=== PATIENT | male | born 1975 | race American Indian/Alaskan Native ===

== ENCOUNTER 2017-02-16 10:10 | Inpatient (IN) | payer MEDICARE, OTHER ==
[2017-02-16 10:54] VITALS: BMI 41.3
[2017-02-16 11:28] LABS: BASO % 0.4 % (0.0-2.0); EOS # 0.1 K/uL (0.0-0.7); EOS % 1.4 % (0.0-4.0); HEMATOCRIT 35.4 % (35.0-51.0); LYMPH # 1.3 K/uL (1.0-4.3); LYMPH % 20.3 % (20.0-40.0); MEAN CELL VOLUME 79.9 fL (80.0-94.0); MEAN CORPUSCULAR HEMOGLOBIN 26.7 pg (27.0-31.0); MEAN CORPUSCULAR HGB CONC 33.3 g/dL (33.0-37.0); MEAN PLATELET VOLUME 8.5 fL (7.2-11.7); MONO # 0.6 K/uL (0.0-0.8); MONO % 8.9 % (0.0-10.0); RED CELL DISTRIBUTION WIDTH 16.1 % (11.5-14.5); WHITE BLOOD COUNT 6.2 K/uL (4.8-10.8)
[2017-02-16 11:31] LABS: RBC URINE < 1 /hpf (0-3); URINE BACTERIA RARE (<OCC); URINE BILIRUBIN NEGATIVE (NEGATIVE); URINE BLOOD NEGATIVE (NEGATIVE); URINE COLOR Yellow (YELLOW); URINE GLUCOSE (UA) NORMAL (Normal); URINE KETONE TRACE mg/dL (NEGATIVE); URINE LEUKOCYTE ESTERASE NEG Leu/uL (Negative); URINE PROTEIN NEGATIVE (NEGATIVE); WBC URINE 1 /hpf (0-5)
[2017-02-16 11:40] LABS: CHLORIDE 102 mmol/L (98-107); POTASSIUM 3.6 mmol/L (3.6-5.2); SODIUM 138 mmol/L (132-148)
[2017-02-16 11:42] LABS: BILIRUBIN,TOTAL 0.3 mg/dL (0.2-1.3); CARBON DIOXIDE 27 mmol/L (22-30); GFR AFRICAN-AMERICAN > 60
[2017-02-16 11:43] LABS: ALB/GLOB RATIO 1.1 (1.0-2.1); ALKALINE PHOSPHATASE 88 U/L (38-126); ALT/SGPT 28 U/L (21-72); AST/SGOT 23 U/L (17-59); BLOOD UREA NITROGEN 13 mg/dL (9-20); CALCIUM 8.2 mg/dl (8.6-10.4); GLUCOSE,RANDOM 118 mg/dL (75-110); TOTAL PROTEIN 6.4 g/dL (6.3-8.3)
[2017-02-16 11:44] LABS: ALCOHOL SERUM < 10 mg/dl (0-10)
--- NOTE | 2017-02-16 12:01 | C.PDOC ---
History Of Present Illness 41 year old patient, with a past medical history of schizophrenia, depression, anxiety, and paranoia, presents to the ED complaining of hearing voices "for a while." Patient states the voices are telling him to kill himself. Patient states he ran out of his medications about a month ago. Patient reports he has been unable to get his medications due to health insurance issues. He was also discharged from [facility] a month ago. Patient denies fever, chills , nausea, vomiting, shortness of breath or homicidal ideation. Time Seen by Provider: 02/16/17 10:35 Chief Complaint (Nursing): Psychiatric Evaluation History Per: Patient History/Exam Limitations: no limitations Onset/Duration Of Symptoms: Other Current Symptoms Are (Timing): Still Present Suicide/Self Injury Attempted (Context): None Modifying Factor(s): None Associated Symptoms: Paranoia, Suicidal Thoughts Recent travel outside of the [place]: No Past Medical History Reviewed: Historical Data, Nursing Documentation, Vital Signs Vital Signs: Last Vital Signs Temp 98.3 F 02/16/17 15:46 Pulse 103 H 02/16/17 15:46 Resp 19 02/16/17 15:46 BP 129/87 02/16/17 15:46 Pulse Ox 98 02/16/17 13:56 - Medical History PMH: Anxiety, Depression, Paranoia, Schizophrenia (With previous suicide attempt 20 years ago), Sleep Apnea - [facility] Procedures DPT ADMINISTRATION (03/28/15) GROUP PSYCHOTHERAPY (03/01/16) INDIVID PSYCHOTHERAP NEC (07/27/14) INDIVIDUAL PSYCHOTHERAPY, SUPPORTIVE (03/01/16) MEDICATION MANAGEMENT (03/01/16) NON-INVASIVE MECHANICAL VENTILATION (11/26/14) OTHER GROUP THERAPY (07/27/14) PSYCHIA INTERV/EVAL NEC (08/19/14) PSYCHIAT DRUG THERAP NEC (03/28/15) Family History: States: Unknown Family Hx - Social History Hx Tobacco Use: Yes Hx Alcohol Use: No Hx Substance Use: No - Immunization History Hx Tetanus Toxoid Vaccination: Yes Hx Influenza Vaccination: Yes Hx Pneumococcal Vaccination: Yes Review Of Systems Except As Marked, All Systems Reviewed And Found Negative. Constitutional: Negative for: Fever, Chills Respiratory: Negative for: Shortness of Breath Gastrointestinal: Negative for: Nausea, Vomiting Psych: Positive for: Suicidal ideation, Other (paranoid) Physical Exam - Physical Exam Appears: Non-toxic, Other (tremulous) Skin: Warm, Dry Head: Atraumatic, Normacephalic Eye(s): bilateral: Normal Inspection Oral Mucosa: Moist Neck: Normal ROM, Supple Chest: Symmetrical Cardiovascular: Rhythm Regular, No Friction Rub, No Murmur Respiratory: Normal Breath Sounds, No Rales, No Rhonchi, No Wheezing Gastrointestinal/Abdominal: Other (obese) Extremity: Normal ROM, No Swelling Neurological/Psych: Oriented x3, Normal Motor, Normal Sensation Gait: Steady ED Course And Treatment - Laboratory Results Result Diagrams: 02/16/17 11:22 02/16/17 11:22 O2 Sat by Pulse Oximetry: 97 (room air) Pulse Ox Interpretation: Normal Medical Decision Making Medical Decision Making: Plan: * Labs Progress: Crisis evaluated the patient at bedside. The patient had voiced suicidal ideation and is placed 1:1. The case was discussed with the psychiatrist who agrees to admit the patient to his service. Disposition - Disposition Disposition: HOSPITALIZED Disposition Time: 11:30 Condition: FAIR - Clinical Impression Clinical Impression: Schizophrenia - PA / ORAL AND MAXILLOFACIAL SURGERY RESIDENT / Resident Statement MD/DO has reviewed & agrees with the documentation as recorded. - Scribe Statement The provider has reviewed the documentation as recorded by the Scribe Shelia Jackson All medical record entries made by the Scribe were at my direction and personally dictated by me. I have reviewed the chart and agree that the record accurately reflects my personal performance of the history, physical exam, medical decision making, and the department course for this patient. I have also personally directed, reviewed, and agree with the discharge instructions and disposition.
[2017-02-16 18:00] VITALS: O2SAT 97
--- NOTE | 2017-02-17 11:32 | PCM.PSYCH ---
Initial Psychiatric Evaluation - Initial Psychiatric Evaluation Type of Admission: Voluntary Legal Status: Capacity Chief Complaint (in patient's own words): 'i started hearing voices' History of Present Illness and Precipitating Events: Patient is a 41 years old -Swazi male, who currently lives with his niece with a long history of schizophrenia paranoid type continuous came to the hospital because of noncompliance of medications and auditory hallucinations noncommand type. Patient remained disorganized and internally preoccupied throughout the evaluation. Patient was superficially cooperative and remained guarded about the details. As per the patient he was just discharged from [facility] last month. Soon after discharge he stopped taking medications, as a result he started hearing voices, to kill him he got scared and came to the hospital to get help. Patient appeared disheveled, and unkempt. He remained depressed, isolated and withdrawn. He reports auditory hallucinations noncommand type, and persecutory delusions that people are following him. Patient reports depressed mood, at times feelings of hopelessness and helplessness. He reports poor sleep but denies any suicidal ideation or any homicidal ideation. He denies any drinking or any substance abuse. past medical history None reported Current Medications: Active Medications Generic Name Dose Route Start Last Admin Trade Name Freq PRN Reason Stop Dose Admin Benztropine Mesylate 2 mg 02/16/17 15:03 Cogentin PO Q6 PRN Extra Pyramidal Symptoms Diphenhydramine HCl 50 mg 02/16/17 15:03 Benadryl PO Q6 PRN Extra Pyramidal Symptoms Haloperidol 5 mg 02/16/17 15:03 Haldol PO Q8 PRN Moderate Agitation Haloperidol Lactate 5 mg 02/16/17 15:03 Haldol IM Q8 PRN Moderate Agitation Risperidone 1 mg 02/16/17 18:00 02/17/17 10:36 Risperdal Tab PO 1 mg BID JOHNY Administration Trazodone HCl 100 mg 02/16/17 22:00 02/16/17 21:43 Desyrel PO 100 mg HS JOHNY Administration Past Psychiatric History - Past Psychiatric History Previous Treatment History: Inpatient Pertinent Medical Hx (Current Medical&Sleep Prob, Allergies): Allergies Allergy/AdvReac Type Severity Reaction Status Date / Time No Known Allergies Allergy Verified 12/20/16 21:26 Benztropine [Cogentin] 1 mg PO BID #60 tab 03/26/16 Sertraline [Zoloft] 200 mg PO DAILY #60 tab 03/26/16 risperiDONE [RisperDAL Tab] 3 mg PO BID #60 tab 03/26/16 Amantadine [Amantadine 100 mg Cap] 100 mg PO TID #0 cap 01/07/17 FLUoxetine [Prozac] 30 mg PO DAILY #0 cap 01/07/17 Lorazepam [Ativan] 0.5 mg PO HS #0 tab 01/07/17 Zaleplon [Sonata] 10 mg PO HS #0 cap 01/07/17 fluPHENAZine [Prolixin] 20 mg PO AMHS #0 tab 01/07/17 Review of Systems - Review of Systems All systems: reviewed and no additional remarkable complaints except - Psychiatric Psychiatric: Anxiety, Auditory Hallucinations, Irritability, Paranoia Mental Status Examination - Personal Presentation Personal Presentation: Looks older than stated age - Affect Affect: Constricted, Depressed - Motor Activity Motor Activity: Psychomotor Retardation - Reliability in Providing Information Reliability in Providing Information: Poor, due to alteration in thoughts, Poor , due to altered mood - Speech Speech: Disorganized, Irrelevant - Mood Mood: Anxious - Formal Thought Process Formal Thought Process: Hallucinations, Delusions, Paranoia, Loosening of associations - Hallucinations/Delusions Hallucinations: Auditory Delusions: Persecution - Obsessions/Compulsions Obsessions: No Compulsions: No - Cognitive Functions Orientation: Person, Place, Situation, Time Sensorium: Alert Attention/Concentration: Attentive Abstract Thinking: [place] Estimate of Intelligence: Below average Judgement: Imparied, as evidence by: Poor judgement, Imparied, as evidence by: Lack of insight into illness - Risk Risk: Suicidal, Diminished functioning - Strength & Assets Inventory Strength & Assets Inventory: Family support, Cooperative DSM 5 DX - DSM 5 DSM 5 Diagnosis: Schizoaffective disorder depressed type - Recommended/Plan of Treatment Treatment Recommendations and Plan of Treatment: Schizoaffective disorder depressed type CBT Psychoeducation Supportive therapy, individual therapy, milieu therapy and group therapy Zoloft 50 mg PO daily Trazodone 50 mg PO Q HS Prolixin 5 mg by mouth twice a day Cogentin 1 mg by mouth twice a day - Smoking Cessation Smoking Cessation Initiated: No
--- NOTE | 2017-02-18 14:12 | PCM.PYCHPN ---
Psychiatric Progress Note - Psychiatric Progress Note Patient seen today, length of contact: 15 min Patient Chief Complaint: 'i am still hearing voices' Problems Identified/Issues Discussed: Patient seen and evaluated, chart reviewed and discussed with the nurse. Patient remained disorganized and internally preoccupied. Patient remained isolated, confined and withdrawn. He still reports of hearing voices. Patient still appears paranoid and delusional. He reports depressed mood and feelings of hopelessness and helplessness. He is taking medications and denies any side effects. Supportive therapy and psychoeducation were given. Medication Change: Yes (increase Zoloft) Medical Record Reviewed: Yes Mental Status Examination - Cognitive Function Orientation: Person, Place, Situation, Time Memory: Intact Attention: Poor Concentration: Poor Association: Loose Fund of Knowledge: Poor - Mood Mood: Anxious - Affect Affect: Constricted, Depressed - Speech Speech: Soft - Formal Thought Process Formal Thought Process: Hallucinations, Delusions, Paranoia, Loosening of associations - Suicidal Ideation Suicidal Ideation: No - Homicidal Ideation Homicidal Ideation: No Goal/Treatment Plan - Goal/Treatment Plan Need for Continued Stay: Discharge may exacerbated symptoms, Severe functional impairment Progress Toward Problem(s) and Goals/Treatment Plan: Schizoaffective disorder depressed type CBT Psychoeducation Supportive therapy, individual therapy, milieu therapy and group therapy Zoloft 100 mg PO daily Trazodone 50 mg PO Q HS Prolixin 5 mg by mouth twice a day Cogentin 1 mg by mouth twice a day - Smoking Cessation Smoking Cessation Initiated: No
--- NOTE | 2017-02-19 12:33 | PCM.PYCHPN ---
Psychiatric Progress Note - Psychiatric Progress Note Patient seen today, length of contact: 15 min Patient Chief Complaint: 'I am feeling depressed.' Problems Identified/Issues Discussed: Patient seen and evaluated, chart reviewed and discussed with the nurse. As per the staff, pt remained isolated, and withdrawn. He remained confined to his room and appeared paranoid and delusional. He appeared unkempt and disheveled. He still reports of hearing voices. He reports depressed mood and anxiety. He is taking medications and denies any aide effects. Supportive therapy and psychoeducation were given. Medication Change: Yes (increase prolixin, increase zoloft) Medical Record Reviewed: Yes Mental Status Examination - Cognitive Function Orientation: Person, Place, Situation, Time Memory: Intact Attention: Poor Concentration: Poor Association: Loose Fund of Knowledge: Poor - Mood Mood: Anxious - Affect Affect: Constricted, Depressed - Speech Speech: Soft - Formal Thought Process Formal Thought Process: Hallucinations, Delusions, Paranoia, Loosening of associations - Suicidal Ideation Suicidal Ideation: No - Homicidal Ideation Homicidal Ideation: No Goal/Treatment Plan - Goal/Treatment Plan Need for Continued Stay: Discharge may exacerbated symptoms, Severe functional impairment Progress Toward Problem(s) and Goals/Treatment Plan: Schizoaffective disorder depressed type CBT Psychoeducation Supportive therapy, individual therapy, milieu therapy and group therapy Zoloft 100 mg PO daily Trazodone 50 mg PO Q HS Prolixin 5 mg by mouth daily Prolixin 10 mg PO QHS Cogentin 1 mg by mouth twice a day - Smoking Cessation Smoking Cessation Initiated: No
--- NOTE | 2017-02-20 17:47 | PCM.PYCHPN ---
Psychiatric Progress Note - Psychiatric Progress Note Patient seen today, length of contact: 15 min Patient Chief Complaint: I still hear voices but I feel safe in the hospital Problems Identified/Issues Discussed: Patient seen. Chart reviewed. Case discussed with the staff. Issues related to illness and treatment were discussed with the patient. Reported compliant with treatment with no adverse affects. Tolerating treatment very well. Patient reported still hearing voices telling him to kill himself but he feels safe in the hospital. Staff reported that patient sleeps all day in his room, is isolative. At the time of evaluation, patient was awake alert oriented 3, had no delusions, no auditory or visual hallucinations, no suicidal ideations or homicidal ideations. Medical Problems: None reported Diagnostic Results: Reviewed DSM 5 Symptoms Update: Improving with treatment Medication Change: No Medical Record Reviewed: Yes Mental Status Examination - Cognitive Function Orientation: Person, Place, Situation, Time Memory: Intact Attention: WNL Concentration: WNL Association: WNL Fund of Knowledge: WNL Decription of patient's judgement and insights: Fair - Mood Mood: Depressed - Affect Affect: Blunted, Depressed - Speech Speech: Appropriate - Formal Thought Process Formal Thought Process: Hallucinations - Suicidal Ideation Suicidal Ideation: No - Homicidal Ideation Homicidal Ideation: No Goal/Treatment Plan - Goal/Treatment Plan Need for Continued Stay: Remain at risks for inpatient hospitalization, Discharge may exacerbated symptoms, Severe functional impairment Progress Toward Problem(s) and Goals/Treatment Plan: Patient education Supportive therapy Continue treatment as before Estimated Date of D/C: 02/22/17 - Smoking Cessation Smoking Cessation Initiated: No
--- NOTE | 2017-02-21 15:48 | PCM.PYCHPN ---
Psychiatric Progress Note - Psychiatric Progress Note Patient seen today, length of contact: 15 min Patient Chief Complaint: Today I am feeling better, not hearing any voices. Problems Identified/Issues Discussed: Patient seen. Chart reviewed. Case discussed with the staff. Issues related to illness and treatment were discussed with the patient. Reported compliant with treatment with no adverse affects. Tolerating treatment very well. Reported feeling better, not hearing voices. Staff reported that patient sleeps all day in his room, is isolative, comes out office room only for food. At the time of evaluation, patient was awake alert oriented 3, had no delusions, no auditory or visual hallucinations, no suicidal ideations or homicidal ideations. Medical Problems: None reported Diagnostic Results: Reviewed DSM 5 Symptoms Update: Some improvement with treatment Medication Change: No Medical Record Reviewed: Yes Mental Status Examination - Cognitive Function Orientation: Person, Place, Situation, Time Memory: Intact Attention: WNL Concentration: WNL Association: [facility] Fund of Knowledge: [facility] Decription of patient's judgement and insights: Fair - Mood Mood: Depressed - Affect Affect: Blunted, Depressed - Speech Speech: Appropriate - Formal Thought Process Formal Thought Process: Other - Suicidal Ideation Suicidal Ideation: No - Homicidal Ideation Homicidal Ideation: No Goal/Treatment Plan - Goal/Treatment Plan Need for Continued Stay: Remain at risks for inpatient hospitalization, Discharge may exacerbated symptoms, Severe functional impairment Progress Toward Problem(s) and Goals/Treatment Plan: Patient education Supportive therapy Continue treatment as before Estimated Date of D/C: 02/22/17 - Smoking Cessation Smoking Cessation Initiated: No
--- NOTE | 2017-02-22 16:49 | PCM.PYCHPN ---
Psychiatric Progress Note - Psychiatric Progress Note Patient seen today, length of contact: 15 min Patient Chief Complaint: 'I am feeling depressed.' Problems Identified/Issues Discussed: Patient seen and evaluated, chart reviewed and discussed with the nurse. The patient appeared depressed, isolated and withdrawn. He still appears suspicious and delusional. He still unkempt and disheveled. As per the staff, pt remained isolated, and withdrawn. However he reports improvement in his voices. He remained confined to his room. He is taking medications and denies any aide effects. Supportive therapy and psychoeducation were given. Medication Change: Yes (Increase Zoloft) Medical Record Reviewed: Yes Mental Status Examination - Cognitive Function Orientation: Person, Place, Situation, Time Memory: Intact Attention: WNL Concentration: Poor Association: Loose Fund of Knowledge: WNL - Mood Mood: Depressed, Anxious - Affect Affect: Blunted, Depressed - Speech Speech: Appropriate - Formal Thought Process Formal Thought Process: Delusions, Paranoia, Loosening of associations, Other - Suicidal Ideation Suicidal Ideation: No - Homicidal Ideation Homicidal Ideation: No Goal/Treatment Plan - Goal/Treatment Plan Need for Continued Stay: Remain at risks for inpatient hospitalization, Discharge may exacerbated symptoms, Severe functional impairment Progress Toward Problem(s) and Goals/Treatment Plan: Schizoaffective disorder depressed type CBT Psychoeducation Supportive therapy, individual therapy, milieu therapy and group therapy Zoloft 200 mg PO daily Trazodone 50 mg PO Q HS Prolixin 5 mg by mouth daily Prolixin 10 mg PO QHS Cogentin 1 mg by mouth twice a day Estimated Date of D/C: 02/22/17 - Smoking Cessation Smoking Cessation Initiated: No
[2017-02-23 07:37] VITALS: RESP 19
--- NOTE | 2017-02-23 15:55 | PCM.PYCHPN ---
Psychiatric Progress Note - Psychiatric Progress Note Patient seen today, length of contact: 15 min Patient Chief Complaint: 'I am feeling much better.' Problems Identified/Issues Discussed: Patient seen and evaluated, chart reviewed and discussed with the nurse. As per the staff, pt is improving and he stepping out of his room. Patient reports improvement in his mood and improvement in his voices. He started taking care of his hygiene. However he appears a bit delusional but he denies any auditory or visual hallucinations and denies any suicidal or homicidal ideation. He is taking medications and denies any side effects. Supportive therapy and psychoeducation were given. Medication Change: Yes (Increase Zoloft, increase prolixin) Medical Record Reviewed: Yes Mental Status Examination - Cognitive Function Orientation: Person, Place, Situation, Time Memory: Intact Attention: WNL Concentration: Poor Association: WNL Fund of Knowledge: Poor - Mood Mood: Depressed, Anxious - Affect Affect: Constricted, Depressed - Speech Speech: Appropriate - Formal Thought Process Formal Thought Process: Delusions, Paranoia, Other - Suicidal Ideation Suicidal Ideation: No - Homicidal Ideation Homicidal Ideation: No Goal/Treatment Plan - Goal/Treatment Plan Need for Continued Stay: Remain at risks for inpatient hospitalization, Discharge may exacerbated symptoms, Severe functional impairment Progress Toward Problem(s) and Goals/Treatment Plan: Schizoaffective disorder depressed type CBT Psychoeducation Supportive therapy, individual therapy, milieu therapy and group therapy Zoloft 200 mg PO daily Trazodone 50 mg PO Q HS Prolixin 10 mg by mouth daily Prolixin 10 mg PO QHS Cogentin 1 mg by mouth twice a day Estimated Date of D/C: 02/22/17
[2017-02-24 08:07] VITALS: BP 104/71; PULSE 76; TEMP 98.1
--- NOTE | 2017-02-24 09:43 | PCM.PYCHDC ---
Mental Status Examination - Mental Status Examination Orientation: Person, Place, Situation, Time Memory: Intact Mood: Neutral Affect: Constricted Speech: Soft Attention: WNL Concentration: WNL Association: WNL Fund of Knowledge: WNL Formal Thought Process: No Impairment Description of patient's judgement and insight: good, fair Psychotic Thoughts and Behaviors: Denies any AVH Suicidal Ideation: No Current Homicidal Ideation?: No Discharge Summary - Discharge Note Reason for Hospitalization: Patient is a 41 years old -Banglades[place] male, who currently lives with his niece with a long history of schizophrenia paranoid type continuous came to the hospital because of noncompliance of medications and auditory hallucinations noncommand type. Patient remained disorganized and internally preoccupied throughout the evaluation. Patient was superficially cooperative and remained guarded about the details. As per the patient he was just discharged from [facility] last month. Soon after discharge he stopped taking medications, as a result he started hearing voices, to kill him he got scared and came to the hospital to get help. Patient appeared disheveled, and unkempt. He remained depressed, isolated and withdrawn. He reports auditory hallucinations noncommand type, and persecutory delusions that people are following him. Patient reports depressed mood, at times feelings of hopelessness and helplessness. He reports poor sleep but denies any suicidal ideation or any homicidal ideation. He denies any drinking or any substance abuse. past medical history None reported Consultations:: List each consultation separately and include: 1. Reason for request. 2. Findings. 3. Follow-up Summary of Hospital Course include:: 1. Description of specific treatment plan utilized for patients during their course of treatmen. 2. Summarize the time- course for resolution of acute symptoms and/or regressed behaviors. 3. Describe issues identified and worked on during hospitalization. 4. Describe medication utilized. 5. Describe medical problems identified and treated. 6. Reassessment of suicide risk Summary of Hospital Course: During the course of his stay, patient (pt) started progressively improving and he no longer remained irritable, depressed, suicidal and paranoid. His mood and paranoia were improved and he started attending groups and meetings and started socializing. He started taking care of his hygiene and ADLs, and he no longer remained disheveled and malodorous. Patient denied any feelings of hopelessness, helplessness, and worthlessness, denied any problem with the sleep or appetite, denied suicidal ideation or homicidal ideation. Pt denied any auditory or visual hallucinations. Some changes were made in his current medications and patient was discharged on following medications. He tolerated these medications very well and denied any side effects. He was discharged to follow up with [facility] IDT program. - Final Diagnosis (DSM 5) Condition upon Discharge: FAIR DSM 5: Schizoaffective disorder depressed type Disposition: HOME/ ROUTINE Follow-up Treatment Plan: Education: Pt was educated and counseled about the risks and benefits of taking and not taking medications. Pt was educated and counseled about the risks of drinking and abusing drugs. Pt was educated and counseled to go to the ER or call 911 if pt develop suicidal ideation or homicidal ideation, worsening of symptoms or severe side effects of the meds. Prescriptions/Medication Reconciliation: Benztropine [Cogentin] 1 mg PO BID #60 tab fluPHENAZine [Prolixin] 10 mg PO BID #60 tab Sertraline [Zoloft] 100 mg PO DAILY #60 tab traZODone [Desyrel] 100 mg PO HS #30 tab - Smoking Cessation Smoking Cessation Medication prescribed: No - Antipsychotic Medications Pt discharged on 2 or more routine antipsychotic medications: No
== END 2017-02-24 10:45 | disposition home or self-care (01) | DRG 885 ==
LOC: C.ER 10:10 → C.5E 13:12
PROVIDERS: ADMIT Psychiatry & Neurology Psychiatry; ATTEND Psychiatry & Neurology Psychiatry
PROC: GZHZZZZ Group Psychotherapy (ICD-10-PCS; principal; 2017-02-16)
PROC: GZ58ZZZ Individual Psychotherapy, Cognitive-Behavioral (ICD-10-PCS; 2017-02-16)
PROC: GZ56ZZZ Individual Psychotherapy, Supportive (ICD-10-PCS; 2017-02-16)
DX: F25.1 Schizoaffective disorder, depressive type (principal); Z91.14 Patient's other noncompliance with medication regimen; G47.30 Sleep apnea, unspecified; Z87.891 Personal history of nicotine dependence; Z91.5 Personal history of self-harm

== ENCOUNTER 2017-03-04 16:09 | Emergency (ER) | payer MEDICARE ==
[2017-03-04 16:09] VITALS: BMI 41.3
[2017-03-04] MEDS ORDERED: Silver Sulfadiazine 1% Cream (20 gm) TOP STA (16:24)
--- NOTE | 2017-03-04 16:27 | C.PDOC ---
History Of Present Illness 41 y/o male presents to ED with c/o sunburn to posterior shoulders, chest, and legs onset 2 days ago. Patient states he has been applying aloe gel to the area w/o relief. Denies any other complaints. Time Seen by Provider: 03/04/17 16:18 Chief Complaint (Nursing): Abnormal Skin Integrity History Per: Patient History/Exam Limitations: no limitations Onset/Duration Of Symptoms: Days Current Symptoms Are (Timing): Still Present Location Of Injury: Right: Leg, Shoulder, Left: Leg, Shoulder, Anterior: Chest, Posterior: Shoulder Quality Of Symptoms: Painful. denies: Draining Recent travel outside of the [place]: No Past Medical History Reviewed: Historical Data, Nursing Documentation, Vital Signs - Medical History PMH: Anxiety, Depression, Paranoia, Schizophrenia (With previous suicide attempt 20 years ago), Sleep Apnea - [facility] Procedures DPT ADMINISTRATION (03/28/15) GROUP PSYCHOTHERAPY (02/16/17) INDIVID PSYCHOTHERAP NEC (07/27/14) INDIVIDUAL PSYCHOTHERAPY, COGNITIVE-BEHAVIORAL (02/16/17) INDIVIDUAL PSYCHOTHERAPY, SUPPORTIVE (02/16/17) MEDICATION MANAGEMENT (03/01/16) NON-INVASIVE MECHANICAL VENTILATION (11/26/14) OTHER GROUP THERAPY (07/27/14) PSYCHIA INTERV/EVAL NEC (08/19/14) PSYCHIAT DRUG THERAP NEC (03/28/15) Family History: States: Unknown Family Hx - Social History Hx Tobacco Use: Yes Hx Alcohol Use: No Hx Substance Use: Yes - Immunization History Hx Tetanus Toxoid Vaccination: Yes Hx Influenza Vaccination: Yes Hx Pneumococcal Vaccination: Yes Review Of Systems Except As Marked, All Systems Reviewed And Found Negative. Constitutional: Negative for: Fever, Chills Cardiovascular: Negative for: Chest Pain Respiratory: Negative for: Cough Gastrointestinal: Negative for: Nausea, Vomiting Skin: Positive for: Other (burn to anterior legs, chest, and posterior shoulders ). Negative for: Rash Neurological: Negative for: Weakness, Numbness, Headache Physical Exam - Physical Exam Appears: Non-toxic, Other (in mild pain) Skin: Warm, Dry, No Rash, Other (Diffuse 1st degree sun burn to anterior legs, chest, and partial thickness burn bilateral posterior shoulders w/ open blisters.) Head: Atraumatic, Normacephalic Chest: Symmetrical Cardiovascular: Rhythm Regular Respiratory: Normal Breath Sounds, No Rales, No Rhonchi, No Wheezing Gastrointestinal/Abdominal: Soft, No Tenderness Back: Normal Inspection Extremity: Normal ROM, Capillary Refill (< 2 sec.) Neurological/Psych: Oriented x3, Normal Speech, Normal Cognition ED Course And Treatment Progress Note: Treated with Motrin and silvadeine. Given prescriptions for same. Advised to apply as directed and f/u with PMD. Disposition Counseled Patient/Family Regarding: Diagnosis, Need For Followup, Rx Given - Disposition Referrals: [facility] [Outside] Disposition: HOME/ ROUTINE Disposition Time: 16:40 Condition: STABLE Prescriptions: Ibuprofen [Motrin Tab] 600 mg PO Q6 PRN #30 tab PRN Reason: fever/pain Lidocaine/Menthol/Aloe Vera [Aloe Vera Pain Relieving Gel] 1 appl TP TID #1 bottle Silver Sulfadiazine 1% [Silver Sulfadiazine] 1 appl TP BID #1 jar Instructions: Sunburn (ED) Print Language: HUNGARIAN - POA Present On Arrival: None - Clinical Impression Clinical Impression: Sunburn - Scribe Statement The provider has reviewed the documentation as recorded by the Didi Reaves Provider Attestation: All medical record entries made by the Didi were at my direction and personally dictated by me. I have reviewed the chart and agree that the record accurately reflects my personal performance of the history, physical exam, medical decision making, and the department course for this patient. I have also personally directed, reviewed, and agree with the discharge instructions and disposition.
[2017-03-04] MEDS ORDERED: Silver Sulfadiazine 1% Cream (20 gm) ONE (16:39)
== END 2017-03-04 16:56 | disposition home or self-care (01) ==
LOC: C.ER 16:09
DX: L55.0 Sunburn of first degree (principal); L55.1 Sunburn of second degree

== ENCOUNTER 2017-03-28 16:56 | Emergency (ER) | payer MEDICARE ==
[2017-03-28 16:57] VITALS: BMI 41.3
--- NOTE | 2017-03-28 17:17 | C.PDOC ---
History Of Present Illness 41 year old male presents to the ED with complaints of hearing voices for two weeks. Patient states the voices are telling himself and he is paranoid but refuses to say what he is paranoid about. He has been contemplating cutting himself and has a history of cutting his wrists. Patient notes diagnosis of schizophrenia but is not taking any medications, has no insurance, and is homeless. He denies any medical problems, substance abuse, or other physical complaints at this time. Time Seen by Provider: 03/28/17 17:05 Chief Complaint (Nursing): Psychiatric Evaluation History Per: Patient History/Exam Limitations: no limitations Onset/Duration Of Symptoms: Persistent (2 weeks ) Suicide/Self Injury Attempted (Context): Other (past history of cutting wrists ) Associated Symptoms: Paranoia, Suicidal Thoughts Involuntary Hold By: None Recent travel outside of the [place]: No Past Medical History Reviewed: Historical Data, Nursing Documentation, Vital Signs Vital Signs: Last Vital Signs Temp 98.4 F 03/28/17 22:28 Pulse 75 03/28/17 22:28 Resp 18 03/28/17 22:28 BP 116/73 03/28/17 22:28 Pulse Ox 95 03/28/17 22:28 - Medical History PMH: Anxiety, Depression, Paranoia, Schizophrenia (With previous suicide attempt 20 years ago), Sleep Apnea - [facility] Procedures DPT ADMINISTRATION (03/28/15) GROUP PSYCHOTHERAPY (02/16/17) INDIVID PSYCHOTHERAP NEC (07/27/14) INDIVIDUAL PSYCHOTHERAPY, COGNITIVE-BEHAVIORAL (02/16/17) INDIVIDUAL PSYCHOTHERAPY, SUPPORTIVE (02/16/17) MEDICATION MANAGEMENT (03/01/16) NON-INVASIVE MECHANICAL VENTILATION (11/26/14) OTHER GROUP THERAPY (07/27/14) PSYCHIA INTERV/EVAL NEC (08/19/14) PSYCHIAT DRUG THERAP NEC (03/28/15) Family History: States: Other Other Family History: non-contributory - Social History Hx Tobacco Use: Yes Hx Alcohol Use: No Hx Substance Use: No - Immunization History Hx Tetanus Toxoid Vaccination: Yes Hx Influenza Vaccination: Yes Hx Pneumococcal Vaccination: Yes Review Of Systems Constitutional: Negative for: Fever, Chills Cardiovascular: Negative for: Chest Pain, Palpitations Respiratory: Negative for: Cough, Shortness of Breath Gastrointestinal: Negative for: Nausea, Vomiting, Abdominal Pain, Diarrhea Psych: Positive for: Suicidal ideation, Other (Paranoia) Physical Exam - Physical Exam Appears: Non-toxic, No Acute Distress Skin: Warm, Dry Head: Atraumatic Eye(s): bilateral: Normal Inspection, PERRL, EOMI Oral Mucosa: Moist Neck: Supple Chest: Symmetrical, No Deformity Cardiovascular: Rhythm Regular Respiratory: Normal Breath Sounds, No Rhonchi, No Wheezing Gastrointestinal/Abdominal: Soft, No Tenderness, No Distention, No Guarding, No Rebound Extremity: Normal ROM, No Tenderness Neurological/Psych: Oriented x3, Normal Speech, Normal Cognition, Normal Cranial Nerves, Normal Motor, Normal Sensation, Normal Reflexes Gait: Steady ED Course And Treatment - Laboratory Results Result Diagrams: 03/28/17 17:45 03/28/17 17:45 O2 Sat by Pulse Oximetry: 98 (room air ) Medical Decision Making Medical Decision Making: the pt is medically clear for psychiatric admission EKG: Ordered, reviewed, and independently interpreted the EKG. Rate: 85 BPM Rhythm: Normal Sinus Rhythm Interpretation: Left axis deviation. no acute ischemia. cxr- nad Disposition - Disposition Disposition: Trans to Other Acute Care Hosp Disposition Time: 22:33 Condition: STABLE - Clinical Impression Clinical Impression: Schizophrenia - Scribe Statement The provider has reviewed the documentation as recorded by the Scribfarhan Blanchard All medical record entries made by the Scribe were at my direction and personally dictated by me. I have reviewed the chart and agree that the record accurately reflects my personal performance of the history, physical exam, medical decision making, and the department course for this patient. I have also personally directed, reviewed, and agree with the discharge instructions and disposition.
[2017-03-28 17:50] LABS: BASO % 0.5 % (0.0-2.0); EOS # 0.1 K/uL (0.0-0.7); EOS % 1.4 % (0.0-4.0); HEMOGLOBIN 13.1 g/dL (12.0-18.0); LYMPH # 1.2 K/uL (1.0-4.3); LYMPH % 24.6 % (20.0-40.0); MEAN CELL VOLUME 79.7 fL (80.0-94.0); MEAN CORPUSCULAR HEMOGLOBIN 26.2 pg (27.0-31.0); MEAN CORPUSCULAR HGB CONC 32.9 g/dL (33.0-37.0); MEAN PLATELET VOLUME 8.2 fL (7.2-11.7); MONO # 0.5 K/uL (0.0-0.8); MONO % 9.5 % (0.0-10.0); RBC 4.99 Mil/uL (4.40-5.90); RED CELL DISTRIBUTION WIDTH 16.1 % (11.5-14.5); WHITE BLOOD COUNT 4.7 K/uL (4.8-10.8)
[2017-03-28 17:57] LABS: SQUAMOUS EPITHIAL < 1 /hpf (0-5); URINE BILIRUBIN NEGATIVE (NEGATIVE); URINE BLOOD NEGATIVE (NEGATIVE); URINE CLARITY Clear (Clear); URINE COLOR Yellow (YELLOW); URINE GLUCOSE (UA) NORMAL (Normal); URINE LEUKOCYTE ESTERASE NEG Leu/uL (Negative); URINE NITRATE NEGATIVE (NEGATIVE); URINE PROTEIN NEGATIVE (NEGATIVE); URINE UROBILINOGEN NORMAL mg/dL (0.2-1.0)
[2017-03-28 18:01] LABS: ALBUMIN 3.8 g/dL (3.5-5.0)
[2017-03-28 18:04] LABS: AST/SGOT 27 U/L (17-59); BARBITURATES, UR NEGATIVE (NEGATIVE); GFR AFRICAN-AMERICAN > 60; GFR NON-AFRICAN AMERICAN > 60
[2017-03-28 18:05] LABS: ALB/GLOB RATIO 1.1 (1.0-2.1); ALT/SGPT 35 U/L (21-72); BENZODIAZEPINES, UR NEGATIVE (NEGATIVE); BLOOD UREA NITROGEN 8 mg/dL (9-20); CALCIUM 9.1 mg/dl (8.6-10.4)
[2017-03-28 18:06] LABS: SALICYLATE < 1.0 mg/dL 1
[2017-03-28 18:08] LABS: ACETAMINOPHEN < 10.0 ug/mL (10.0-30.0)
[2017-03-28 18:09] LABS: OPIATES, UR NEGATIVE (NEGATIVE); PHENCYCLIDINE, UR NEGATIVE (NEGATIVE)
[2017-03-28 21:59] VITALS: RESP 18
[2017-03-28 22:31] VITALS: BP 116/73; PULSE 75; TEMP 98.4
--- NOTE | 2017-03-29 08:45 | RAD ---
HISTORY: Psychiatric evaluation COMPARISON: No prior. FINDINGS: LUNGS: Mild venous congestion. Patchy increased markings at the left lung base. PLEURA: As above. CARDIOVASCULAR: Normal. OSSEOUS STRUCTURES: No significant abnormalities. VISUALIZED UPPER ABDOMEN: Normal. OTHER FINDINGS: None. IMPRESSION: Mild venous congestion. Patchy increased markings at the left lung base.
[2017-03-30 00:29] VITALS: O2SAT 98
--- NOTE | 2017-03-31 11:07 | CARD ---
APPROVED REPORT EKG Measurement Heart [id number] <Conclusion> Normal sinus rhythm Left axis deviation Cannot rule out Anterior infarct, age undetermined Abnormal ECG
== END 2017-03-28 22:34 | disposition short-term general hospital (02) ==
LOC: C.ER 16:56
DX: F20.9 Schizophrenia, unspecified (principal)
CPT/HCPCS: 71010; 80053; 81001; 85025; 99284; G0480

== ENCOUNTER 2017-06-03 11:18 | Inpatient (IN) | payer MEDICARE, MEDICAID ==
[2017-06-03 11:19] VITALS: BMI 44.5
[2017-06-03 12:44] LABS: URINE BILIRUBIN NEGATIVE (NEGATIVE); URINE BLOOD NEGATIVE (NEGATIVE); URINE COLOR Yellow (YELLOW); URINE GLUCOSE (UA) NORMAL (Normal); URINE KETONE NEGATIVE (NEGATIVE); URINE LEUKOCYTE ESTERASE NEG Leu/uL (Negative); URINE PROTEIN NEGATIVE (NEGATIVE); URINE UROBILINOGEN NORMAL mg/dL (0.2-1.0); WBC URINE < 1 /hpf (0-5)
[2017-06-03 12:46] LABS: BASO % 0.7 % (0.0-2.0); EOS # 0.2 K/uL (0.0-0.7); EOS % 2.9 % (0.0-4.0); HEMATOCRIT 44.8 % (35.0-51.0); LYMPH # 1.6 K/uL (1.0-4.3); LYMPH % 24.2 % (20.0-40.0); MEAN CELL VOLUME 79.7 fL (80.0-94.0); MEAN CORPUSCULAR HGB CONC 33.8 g/dL (33.0-37.0); MEAN PLATELET VOLUME 9.5 fL (7.2-11.7); MONO # 0.6 K/uL (0.0-0.8); NRBC % 0.1 % (0.0-2.0); RED CELL DISTRIBUTION WIDTH 16.3 % (11.5-14.5); WHITE BLOOD COUNT 6.4 K/uL (4.8-10.8)
[2017-06-03 12:53] LABS: ALB/GLOB RATIO 1.2 (1.0-2.1); ALCOHOL SERUM < 10 mg/dl (0-10); ALKALINE PHOSPHATASE 88 U/L (38-126); ALT/SGPT 24 U/L (21-72); AST/SGOT 32 U/L (17-59); BILIRUBIN,TOTAL 0.6 mg/dL (0.2-1.3); BLOOD UREA NITROGEN 11 mg/dL (9-20); CALCIUM 9.2 mg/dl (8.6-10.4); CARBON DIOXIDE 20 mmol/L (22-30); CHLORIDE 100 mmol/L (98-107); GFR AFRICAN-AMERICAN > 60; GLUCOSE,RANDOM 102 mg/dL (75-110); POTASSIUM 4.2 mmol/L (3.6-5.2); SODIUM 136 mmol/L (132-148); TOTAL PROTEIN 7.5 g/dL (6.3-8.3)
--- NOTE | 2017-06-03 12:59 | RAD ---
PROCEDURE: CHEST RADIOGRAPH, 1 VIEW HISTORY: Detox/Psy COMPARISON: Comparison made with prior chest radiograph 03/28/2017 FINDINGS: LUNGS: Poor inspiration with low lung volumes, crowded bronchovascular markings and mild bibasilar atelectasis. PLEURA: No pneumothorax or pleural fluid seen. CARDIOVASCULAR: Heart is appears upper limits of normal/borderline enlarged OSSEOUS STRUCTURES: No significant abnormalities. VISUALIZED UPPER ABDOMEN: Normal. OTHER FINDINGS: None. IMPRESSION: Poor inspiration with low lung volumes, crowded bronchovascular markings and mild bibasilar atelectasis.
--- NOTE | 2017-06-03 14:27 | C.PDOC ---
History Of Present Illness 41 y/o male, with PMHx of anxiety, depression, paranoia, schizophrenia, presents to ED for psychiatric evaluation. Pt states he has been hearing voices telling him to hurt himself. Pt states that he had thoughts of hurting himself by cutting his wrists. Of note, pt is not complaint with his psych meds. Pt also complaints of sharp non-radiating left sided chest pain associated with occasional nausea for the last 2 days. Otherwise, denies any palpitations, shortness of breath, abdominal pain, vomiting, fever, or chills. Time Seen by Provider: 06/03/17 12:27 Chief Complaint (Nursing): Psychiatric Evaluation History Per: Patient History/Exam Limitations: no limitations Onset/Duration Of Symptoms: Days (2) Current Symptoms Are (Timing): Still Present Suicide/Self Injury Attempted (Context): None Modifying Factor(s): None Associated Symptoms: Suicidal Thoughts, Suicidal Plan Involuntary Hold By: None Recent travel outside of the [place]: No Additional History Per: Patient Past Medical History Reviewed: Historical Data, Nursing Documentation, Vital Signs Vital Signs: Last Vital Signs Temp 98.5 F 06/03/17 13:58 Pulse 89 06/03/17 13:58 Resp 18 06/03/17 16:33 BP 133/82 06/03/17 13:58 Pulse Ox 95 06/03/17 14:47 - Medical History PMH: Anxiety, Depression, Paranoia, Schizophrenia (With previous suicide attempt 20 years ago), Sleep Apnea - [facility] Procedures DPT ADMINISTRATION (03/28/15) GROUP PSYCHOTHERAPY (02/16/17) INDIVID PSYCHOTHERAP NEC (07/27/14) INDIVIDUAL PSYCHOTHERAPY, COGNITIVE-BEHAVIORAL (02/16/17) INDIVIDUAL PSYCHOTHERAPY, SUPPORTIVE (02/16/17) MEDICATION MANAGEMENT (03/01/16) NON-INVASIVE MECHANICAL VENTILATION (11/26/14) OTHER GROUP THERAPY (07/27/14) PSYCHIA INTERV/EVAL NEC (08/19/14) PSYCHIAT DRUG THERAP NEC (03/28/15) Family History: States: Unknown Family Hx - Social History Hx Tobacco Use: Yes Hx Alcohol Use: No Hx Substance Use: No - Immunization History Hx Tetanus Toxoid Vaccination: Yes Hx Influenza Vaccination: Yes Hx Pneumococcal Vaccination: Yes Review Of Systems Constitutional: Negative for: Fever, Chills Cardiovascular: Positive for: Chest Pain. Negative for: Palpitations, Edema, Light Headedness Respiratory: Negative for: Cough, Shortness of Breath Gastrointestinal: Positive for: Nausea. Negative for: Vomiting, Abdominal Pain , Diarrhea, Constipation Genitourinary: Negative for: Dysuria, Frequency, Hematuria Skin: Negative for: Rash, Bruising Neurological: Negative for: Headache, Dizziness Psych: Positive for: Suicidal ideation Physical Exam - Physical Exam Additional Physical Exam Comments: Constitutional: No acute distress. Morbidly obese. Head: Normocephalic. Atraumatic. Eyes: PERRL. EOMI ENT: Moist mucous membranes. Neck: Supple. Cardiovascular: Regular rate and rhythm. No murmur. Chest: Reproducible tenderness to left sternal border chest wall. Respiratory: Clear to auscultation bilaterally. No wheezing, rhonchi, or rales. GI: Soft. Nontender. Nondistended. Normoactive bowel sounds. Obese abdomen. Back: No CVA tenderness. Musculoskeletal: No swelling of extremities. No calf tenderness. Skin: No rash. Neurologic: Alert, no gross focal deficit. ED Course And Treatment - Laboratory Results Result Diagrams: 06/03/17 12:37 06/03/17 12:37 ECG: Interpreted By Me, Viewed By Me ECG Rhythm: Sinus Rhythm ECG Interpretation: Normal Rate From EC (bpm) O2 Sat by Pulse Oximetry: 95 (on RA) Pulse Ox Interpretation: Normal Medical Decision Making Medical Decision Making: EKG ordered and reviewed. Pt was given Aspirin. ot with persistent left sternal border cp x 2 days, ekg nsr, neg trop, and pain reproducible, unlikely to be cardiac related. pt to be admitted to psych Disposition Discussed With : Michelle Carrillo Doctor Will See Patient In The: Hospital - Disposition Disposition: HOSPITALIZED Disposition Time: 14:46 Condition: STABLE - Clinical Impression Clinical Impression: Schizophrenia, Costochondritis - PA / MARKETING CONTENT MANAGER / Resident Statement MD/DO has reviewed & agrees with the documentation as recorded. - Scribe Statement The provider has reviewed the documentation as recorded by the Nicoleibfarhan Jackson All medical record entries made by the Scribe were at my direction and personally dictated by me. I have reviewed the chart and agree that the record accurately reflects my personal performance of the history, physical exam, medical decision making, and the department course for this patient. I have also personally directed, reviewed, and agree with the discharge instructions and disposition. Decision To Admit - Pt Status Changed To: Hospital Disposition Of: Inpatient - Admit Certification Admit to Inpatient:: After my assessment, the patient will require hospitalization for at least two midnights. This is because of the severity of symptoms shown, intensity of services needed, and/or the medical risk in this patient being treated as an outpatient. - InPatient: Physician Admission Certification: I certify that this patient requires 2 or more midnights of care for the following reason:: for psychiatric stabilization - . Bed Request Type: Psychiatry Admitting Physician: Michelle Carrillo Patient Diagnosis: Schizophrenia, Costochondritis
--- NOTE | 2017-06-03 16:22 | PCM.BM ---
<Juan Maldonado - Last Filed: 06/03/17 16:19> Treatment Plan Problems - Problems identified on initial assessmt Auditory Hallucination Date Initiated: 06/03/17 Time Initiated: 15:50 Assessment reference: NA Status: Active Depression Date Initiated: 06/03/17 Time Initiated: 15:50 Assessment reference: NA Status: Active Treatment assets and liabiliti Patient Assests: cooperative, educated, self-reliant, ADL independent, negotiates basic needs, good past tx response, cognitively intact - Milieu Protocol Maintain good personal hygiene: daily Encourage regular showers, daily Remind patient to perform daily oral care Maintain personal safety: every shift Educate patient to report safety concerns to staff, every shift Monitor environment for contraband/sharps Medication safety: Monitor for expected outcome, potential side effects: every shift, Assess barriers to learning: every shift, Assess readiness for medication education: every shift <Michelle Carrillo - Last Filed: 06/04/17 10:40> - Diagnosis (1) Schizoaffective disorder, bipolar type Status: Acute Interventions: 06/04/17 10:41 * Assess/adjust medications daily and /or as needed * See patient on an individual basis 7x/week to assess status of hallucinations * Discuss risks, benefits, side effects and alternatives of medications * <Erendira Pulido - Last Filed: 06/04/17 10:45> Family Contact Family involvement: Famliy/SO not involved - Goals for Treatment Patient goals for treatment: "I need Medicaid so I can get my meds." Discharge/Continuing Care - Education Needs Education Needs: Patient Medication, Patient Coping Skills, Patient Community resources - Discharge Discharge Criteria: Tolerates medication w/o severe side effects, Reduction of target symptoms Discharge to:: Halfway - Treatment Team Participation Discussed with Family/SO: No Was Patient/Family/SO present at Treatment Team Meeting: Yes
--- NOTE | 2017-06-04 10:41 | PCM.PSYCH ---
Initial Psychiatric Evaluation - Initial Psychiatric Evaluation Type of Admission: Voluntary Legal Status: Capacity Chief Complaint (in patient's own words): "I am hearing voices." History of Present Illness and Precipitating Events: Pt is a 41 year old, male, presenting to the ED for a crisis evaluation due to auditory hallucinations and suicidal ideation. Pt states that he has been off of his psychiatric meds because he is unable to pay for them. Pt reports that after discharge from [facility] inpatient psych last month, he was feeling better, but since he can't get his medication, his symptoms are back. Pt appeared somewhat disorganized, internally preoccupied, and depressed. Pt states that he has been hearing voices commanding him to kill himself. Pt states that he also believes people are following him and are out to get him. Pt states that it's not anyone in particular, but it's "everyone." Pt admits to experiencing suicidal thoughts with plan to cut his wrists. Pt reports one prior suicide attempt 2 years ago by cutting his wrist. Pt is disheveled, malodorous. Pt is depressed with flat affect. He reports feelings of hopelessness and helplessness. Pt denies homicidal ideation. Pt is calm and cooperative at this time. Pt. denies using heroin, cocaine, and marijuana. Pt. claims he drinks 1-2 cans of beer socially. He claims he smokes 1 pack of cigarettes daily, but increases to 2 packs when he hears the voices. Pt. 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 Past Psych Hx: [facility] 3 months ago, [facility] 4 months ago, [facility] in February 2016, multiple inpatient psych hospitalizations, f/u w/ unknown psychiatrist at [facility]; hx. of suicidal ideation w/ 2 attempts (1 and 3 yrs. ago) ; pt. reports to having hx. of schizophrenia and depression PMH: sleep apnea; obesity Family psych/med Hx: "I don't know" Legal Hx: hx. of arrests due to assaultive behavior but denies any legal charges in past Social Hx: single; no children; homeless; unemployed--on disability Current Medications: Active Medications Generic Name Dose Route Start Last Admin Trade Name Freq PRN Reason Stop Dose Admin Benztropine Mesylate 1 mg 06/03/17 18:15 06/04/17 09:29 Cogentin PO 1 mg BID JOHNY Administration Hydroxyzine HCl 25 mg 06/03/17 18:02 06/04/17 09:29 Atarax PO 25 mg Q6H PRN Administration Anxiety Nicotine 1 patch 06/04/17 10:00 06/04/17 09:31 Nicoderm Cq TD Not Given DAILY JOHNY Risperidone 1 mg 06/03/17 18:15 06/04/17 09:29 Risperdal Tab PO 1 mg BID JOHNY Administration Trazodone HCl 100 mg 06/03/17 22:00 06/03/17 21:23 Desyrel PO 100 mg HS JOHNY Administration Past Psychiatric History - Past Psychiatric History Previous Treatment History: Inpatient Pertinent Medical Hx (Current Medical&Sleep Prob, Allergies): Allergies Allergy/AdvReac Type Severity Reaction Status Date / Time No Known Allergies Allergy Verified 06/03/17 11:27 No Known Home Med 06/03/17 Review of Systems - Review of Systems All systems: reviewed and no additional remarkable complaints except - Psychiatric Psychiatric: Anxiety, Auditory Hallucinations, Depression, Difficulty Concentrating, Irritability, Paranoia, Suicidal Ideation Mental Status Examination - Personal Presentation Personal Presentation: Looks stated age - Affect Affect: Constricted, Depressed - Motor Activity Motor Activity: Calm - Reliability in Providing Information Reliability in Providing Information: Poor, due to alteration in thoughts, Poor , due to altered mood - Speech Speech: Disorganized - Mood Mood: Depressed, Anxious - Formal Thought Process Formal Thought Process: Hallucinations, Delusions, Paranoia, Loosening of associations - Hallucinations/Delusions Hallucinations: Auditory Delusions: Persecution - Obsessions/Compulsions Obsessions: No Compulsions: No - Cognitive Functions Orientation: Person, Place, Situation, Time Sensorium: Alert Attention/Concentration: Attentive Abstract Thinking: [place] Estimate of Intelligence: Below average Judgement: Imparied, as evidence by: Poor judgement, Imparied, as evidence by: Lack of insight into illness - Risk Risk: Suicidal, Diminished functioning - Strength & Assets Inventory Strength & Assets Inventory: Family support - Limitations Limitations: Living alone DSM 5 DX - DSM 5 DSM 5 Diagnosis: Schizoaffective disorder bipolar type - Recommended/Plan of Treatment Treatment Recommendations and Plan of Treatment: Schizoaffective disorder bipolar type Risperdal 1 mg PO BID Trazodone 100 mg PO HS Cogentin 1 mg PO BID CBT Psychoeducation Supportive therapy, group therapy, individual therapy Projected ELOS: 6-7 days - Smoking Cessation Smoking Cessation Initiated: No
--- NOTE | 2017-06-05 11:16 | PCM.PYCHPN ---
Psychiatric Progress Note - Psychiatric Progress Note Patient seen today, length of contact: 16 min Patient Chief Complaint: "I am hearing voices." Problems Identified/Issues Discussed: Patient seen and evaluated, chart reviewed and discussed with the nurse. Patient remained disorganized and internally preoccupied. Patient remained isolated, confined and withdrawn. He still reports of hearing voices telling him to hurt himself. Patient still appears paranoid and delusional. He reports depressed mood and feelings of hopelessness and helplessness. However, he is taking medication and denies any side effects. Supportive therapy and psychoeducation were given. Medication Change: Yes (increase risperdal) Medical Record Reviewed: Yes Mental Status Examination - Cognitive Function Orientation: Person, Place, Situation, Time Memory: Intact Attention: Poor Concentration: Poor Association: Loose Fund of Knowledge: Poor - Mood Mood: Depressed, Anxious - Affect Affect: Constricted, Depressed - Speech Speech: Soft - Formal Thought Process Formal Thought Process: Hallucinations, Delusions, Paranoia, Loosening of associations - Suicidal Ideation Suicidal Ideation: No - Homicidal Ideation Homicidal Ideation: No Goal/Treatment Plan - Goal/Treatment Plan Need for Continued Stay: Discharge may exacerbated symptoms, Severe functional impairment Progress Toward Problem(s) and Goals/Treatment Plan: Schizoaffective disorder bipolar type Risperdal 2 mg PO HS Risperdal 1 mg PO Daily Trazodone 100 mg PO HS Cogentin 1 mg PO BID CBT Psychoeducation Supportive therapy, group therapy, individual therapy - Smoking Cessation Smoking Cessation Initiated: No
--- NOTE | 2017-06-06 10:23 | CARD ---
APPROVED REPORT EKG Measurement Heart [id number] <Conclusion> Normal sinus rhythm Normal ECG
--- NOTE | 2017-06-06 13:47 | PCM.PYCHPN ---
Psychiatric Progress Note - Psychiatric Progress Note Patient seen today, length of contact: 17 min Patient Chief Complaint: "I am hearing voices." Problems Identified/Issues Discussed: Patient seen and evaluated, chart reviewed and discussed with the nurse. Patient remained paranoid, disheveled and delusional. He still reports depressed mood and feelings of hopelessness and helplessness. He remained disorganized and internally preoccupied and remained isolated, confined and withdrawn. He still reports of hearing voices telling him to hurt himself. He needs more time for stabilization. However, he is taking medication and denies any side effects. Supportive therapy and psychoeducation were given. Medication Change: Yes (increase risperdal , start zoloft) Medical Record Reviewed: Yes Mental Status Examination - Cognitive Function Orientation: Person, Place, Situation, Time Memory: Intact Attention: Poor Concentration: Poor Association: Loose Fund of Knowledge: Poor - Mood Mood: Depressed, Anxious - Affect Affect: Constricted, Depressed - Speech Speech: Soft - Formal Thought Process Formal Thought Process: Hallucinations, Delusions, Paranoia, Loosening of associations - Suicidal Ideation Suicidal Ideation: No - Homicidal Ideation Homicidal Ideation: No Goal/Treatment Plan - Goal/Treatment Plan Need for Continued Stay: Discharge may exacerbated symptoms, Severe functional impairment Progress Toward Problem(s) and Goals/Treatment Plan: Schizoaffective disorder bipolar type Risperdal 3 mg PO HS Risperdal 1 mg PO Daily Trazodone 100 mg PO HS Cogentin 1 mg PO BID Start zoloft 50 mg PO Daily CBT Psychoeducation Supportive therapy, group therapy, individual therapy - Smoking Cessation Smoking Cessation Initiated: No
--- NOTE | 2017-06-07 10:18 | PCM.PYCHPN ---
Psychiatric Progress Note - Psychiatric Progress Note Patient seen today, length of contact: 17 min Patient Chief Complaint: I dont feel too good. Problems Identified/Issues Discussed: Patient seen and evaluated, chart reviewed and discussed with the nurse. Pt. reports he is still having auditory hallucinations, telling him to hurt himself. Pt. denies visual hallucinations. He states he feels very sluggish and anxious b/c he feels like the medications are not helping him. Pt. denies suicidal and homicidal ideation. Pt. is mainly annoyed about the voices and states he has racing thoughts at times. Pt. still reports depressed mood and feelings of hopelessness and helplessness. He remained disorganized and internally preoccupied. He states he wants to be isolated and remains confined and withdrawn. After care discussed. His plan after discharge is to re-apply for Medicaid so that he can get medications and apply for outpatient programs. Medication Change: Yes (increase risperdal , increase zoloft) Medical Record Reviewed: Yes Mental Status Examination - Cognitive Function Orientation: Person, Place, Situation, Time Memory: Intact Attention: Poor Concentration: Poor Association: Loose Fund of Knowledge: Poor - Mood Mood: Depressed, Anxious - Affect Affect: Constricted, Depressed - Speech Speech: Soft - Formal Thought Process Formal Thought Process: Hallucinations, Delusions, Paranoia, Loosening of associations - Suicidal Ideation Suicidal Ideation: No - Homicidal Ideation Homicidal Ideation: No Goal/Treatment Plan - Goal/Treatment Plan Need for Continued Stay: Discharge may exacerbated symptoms, Severe functional impairment Progress Toward Problem(s) and Goals/Treatment Plan: Schizoaffective disorder bipolar type Risperdal 3 mg PO HS Risperdal 2 mg PO Daily Trazodone 100 mg PO HS Cogentin 1 mg PO BID Zoloft 100 mg PO Daily CBT Psychoeducation Supportive therapy, group therapy, individual therapy - Smoking Cessation Smoking Cessation Initiated: No
--- NOTE | 2017-06-08 10:36 | PCM.PYCHPN ---
Psychiatric Progress Note - Psychiatric Progress Note Patient seen today, length of contact: 17 min Patient Chief Complaint: "I'm still hearing voices and now I have headaches from them." Problems Identified/Issues Discussed: Pt. is seen and evaluated, chart reviewed, and discussed with staff. Pt. reports his auditory hallucinations are not getting better at all. Pt. claims the voices are constant and it is multiple people talking to him at once. He complains of having racing thoughts and now "want to just get away and go somewhere else." He claims the voices serve as the main stressor to his anxiety and agitation. He denies feeling sluggish and feels more energetic than yesterday. Pt. denies visual hallucinations and denies suicidal ideation. He says he has homicidal ideation only to protect himself from others. Pt. seems less internally preoccupied, but still stays isolated and confined to himself. Pt. slept well last night. Symptoms are improving but needs more time to stabilize. No SEs from medications, risks are discussed. After care discussed. SW told him he is eligible for Medicaid, so he just needs to re-apply after discharge. Medication Change: Yes (start geodon) Medical Record Reviewed: Yes Mental Status Examination - Cognitive Function Orientation: Person, Place, Situation, Time Memory: Intact Attention: Poor Concentration: Poor Association: Loose Fund of Knowledge: Poor - Mood Mood: Depressed, Anxious - Affect Affect: Constricted, Depressed - Speech Speech: Soft - Formal Thought Process Formal Thought Process: Hallucinations, Delusions, Paranoia, Loosening of associations - Suicidal Ideation Suicidal Ideation: No - Homicidal Ideation Homicidal Ideation: No Goal/Treatment Plan - Goal/Treatment Plan Need for Continued Stay: Discharge may exacerbated symptoms, Severe functional impairment Progress Toward Problem(s) and Goals/Treatment Plan: Schizoaffective disorder bipolar type Risperdal 3 mg PO HS Risperdal 2 mg PO Daily Trazodone 100 mg PO HS Cogentin 1 mg PO BID Zoloft 100 mg PO Daily Geodon 2 mg PO BID CBT Psychoeducation Supportive therapy, group therapy, individual therapy - Smoking Cessation Smoking Cessation Initiated: No
--- NOTE | 2017-06-09 11:41 | PCM.PYCHPN ---
Psychiatric Progress Note - Psychiatric Progress Note Patient seen today, length of contact: 17 min Patient Chief Complaint: "I feel a little better." Problems Identified/Issues Discussed: Pt. is seen and evaluated, chart reviewed, and case discussed with staff. Pt. reports his auditory hallucinations have improved since yesterday. He claims the volume of the voices have decreased and that the medications are working for him. Pt. states that the improvement in the voices are helping him with his mood and anxiety. Pt. denies suicidal and homicidal ideation and denies auditory and visual hallucinations at this time. His sleep has been good. Pt. says he has been more active, walking around more often and appears less internally preoccupied. No new symptoms reported, improving slowly and needs more time. No SEs from medications, risks discussed. After care discussed. He will apply for Medicaid. Medication Change: Yes (start geodon) Medical Record Reviewed: Yes Mental Status Examination - Cognitive Function Orientation: Person, Place, Situation, Time Memory: Intact Attention: Poor Concentration: Poor Association: Loose Fund of Knowledge: Poor - Mood Mood: Depressed, Anxious - Affect Affect: Constricted, Depressed - Speech Speech: Soft - Formal Thought Process Formal Thought Process: Hallucinations, Delusions, Paranoia, Loosening of associations - Suicidal Ideation Suicidal Ideation: No - Homicidal Ideation Homicidal Ideation: No Goal/Treatment Plan - Goal/Treatment Plan Need for Continued Stay: Discharge may exacerbated symptoms, Severe functional impairment Progress Toward Problem(s) and Goals/Treatment Plan: Schizoaffective disorder bipolar type Risperdal 3 mg PO HS Risperdal 2 mg PO Daily Trazodone 100 mg PO HS Cogentin 1 mg PO BID Zoloft 100 mg PO Daily Geodon 20 mg PO BID CBT Psychoeducation Supportive therapy, group therapy, individual therapy
--- NOTE | 2017-06-10 11:16 | PCM.PYCHPN ---
Psychiatric Progress Note - Psychiatric Progress Note Patient seen today, length of contact: 17 min Patient Chief Complaint: "I'm okay." Problems Identified/Issues Discussed: Pt. is seen and evaluated, chart reviewed, and case discussed with staff. Pt. reports that the auditory hallucinations are still there, but the voices are "on the level that he can deal with." He says he slept well through the night and has more energy. Pt. claims he still has racing thoughts sporadically. Pt. denies visual hallucinations and denies suicidal and homicidal ideation at this time. No new symptoms reported, improving slowly, and needs more time. No SEs from medications, risks discussed. After care discussed. He filled out paperwork for Medicaid and is waiting on a response.. Medication Change: Yes (increase zoloft) Medical Record Reviewed: Yes Mental Status Examination - Cognitive Function Orientation: Person, Place, Situation, Time Memory: Intact Attention: WNL Concentration: Poor Association: Loose Fund of Knowledge: Poor - Mood Mood: Depressed, Anxious - Affect Affect: Constricted, Depressed - Speech Speech: Soft - Formal Thought Process Formal Thought Process: Hallucinations, Delusions, Paranoia, Loosening of associations - Suicidal Ideation Suicidal Ideation: No - Homicidal Ideation Homicidal Ideation: No Goal/Treatment Plan - Goal/Treatment Plan Need for Continued Stay: Discharge may exacerbated symptoms, Severe functional impairment Progress Toward Problem(s) and Goals/Treatment Plan: Schizoaffective disorder bipolar type Risperdal 3 mg PO HS Risperdal 2 mg PO Daily Trazodone 100 mg PO HS Cogentin 1 mg PO BID Zoloft 150 mg PO Daily Geodon 20 mg PO BID CBT Psychoeducation Supportive therapy, group therapy, individual therapy - Smoking Cessation Smoking Cessation Initiated: No
--- NOTE | 2017-06-11 10:01 | PCM.BM ---
<Erendira Pulido - Last Filed: 06/11/17 10:00> Treatment Plan Problems - Problems identified on initial assessmt Auditory Hallucination Date Initiated: 06/03/17 Time Initiated: 15:50 Assessment reference: NA Status: Active Depression Date Initiated: 06/03/17 Time Initiated: 15:50 Assessment reference: NA Status: Active Treatment assets and liabiliti Patient Assests: cooperative, educated, self-reliant, ADL independent, negotiates basic needs, good past tx response, cognitively intact - Milieu Protocol Maintain good personal hygiene: daily Encourage regular showers, daily Remind patient to perform daily oral care Maintain personal safety: every shift Educate patient to report safety concerns to staff, every shift Monitor environment for contraband/sharps Medication safety: Monitor for expected outcome, potential side effects: every shift, Assess barriers to learning: every shift, Assess readiness for medication education: every shift Milieu Narrative: Schizoaffective disorder bipolar type Risperdal 3 mg PO HS Risperdal 2 mg PO Daily Trazodone 100 mg PO HS Cogentin 1 mg PO BID Zoloft 150 mg PO Daily Geodon 20 mg PO BID CBT Psychoeducation Supportive therapy, group therapy, individual therapy Family Contact Family involvement: Famliy/SO not involved - Goals for Treatment Patient goals for treatment: "I need Medicaid so I can get my meds." Discharge/Continuing Care - Education Needs Education Needs: Patient Medication, Patient Coping Skills, Patient Community resources - Discharge Discharge Criteria: Tolerates medication w/o severe side effects, Reduction of target symptoms Discharge to:: Snf - Treatment Team Participation Patient/Family/SO Statement: Schizoaffective disorder bipolar type Risperdal 3 mg PO HS Risperdal 2 mg PO Daily Trazodone 100 mg PO HS Cogentin 1 mg PO BID Zoloft 150 mg PO Daily Geodon 20 mg PO BID CBT Psychoeducation Supportive therapy, group therapy, individual therapy Discussed with Family/SO: No Was Patient/Family/SO present at Treatment Team Meeting: Yes Treatment Plan Review Patient participation: Yes Family/SO/Caregiver participation: No - Problem Auditory Hallucination Date Initiated: 06/11/17 Time Initiated: 10:00 Progress toward outcomes: unchanged Depression Date Initiated: 06/11/17 Time Initiated: 10:00 Progress toward outcomes: unchanged <Michelle Carrillo - Last Filed: 06/11/17 10:53> - Diagnosis (1) Schizoaffective disorder, bipolar type Status: Acute Interventions: 06/11/17 10:53 * Assess/adjust medications daily and /or as needed * See patient on an individual basis 7x/week to assess status of hallucinations * Discuss risks, benefits, side effects and alternatives of medications *
--- NOTE | 2017-06-11 10:53 | PCM.PYCHPN ---
Psychiatric Progress Note - Psychiatric Progress Note Patient seen today, length of contact: 17 min Patient Chief Complaint: "I'm okay." Problems Identified/Issues Discussed: Pt. is seen and evaluated, chart reviewed, and case discussed with staff. Pt. reports improvement in his mood and voices. He appears more organized and less internally preoccupied. Pt. denies visual hallucinations and denies suicidal and homicidal ideation at this time. No new symptoms reported, improving slowly, and needs more time. No SEs from medications, risks discussed. After care discussed. He will follow up with [facility] after d/c. Medication Change: Yes (increase zoloft, reduce risperdal , increase geodon) Medical Record Reviewed: Yes Mental Status Examination - Cognitive Function Orientation: Person, Place, Situation, Time Memory: Intact Attention: WNL Concentration: Poor Association: Loose Fund of Knowledge: Poor - Mood Mood: Depressed, Anxious - Affect Affect: Constricted, Depressed - Speech Speech: Soft - Formal Thought Process Formal Thought Process: Hallucinations, Delusions, Paranoia, Loosening of associations - Suicidal Ideation Suicidal Ideation: No - Homicidal Ideation Homicidal Ideation: No Goal/Treatment Plan - Goal/Treatment Plan Need for Continued Stay: Discharge may exacerbated symptoms, Severe functional impairment Progress Toward Problem(s) and Goals/Treatment Plan: Schizoaffective disorder bipolar type Risperdal 2 mg PO BID Trazodone 100 mg PO HS Cogentin 1 mg PO BID Zoloft 200 mg PO Daily Geodon 40 mg PO BID CBT Psychoeducation Supportive therapy, group therapy, individual therapy - Smoking Cessation Smoking Cessation Initiated: No
--- NOTE | 2017-06-12 18:55 | PCM.PYCHPN ---
Psychiatric Progress Note - Psychiatric Progress Note Patient seen today, length of contact: 15 minutes Patient Chief Complaint: I still hear voices but they're less than before. Problems Identified/Issues Discussed: Patient seen. Chart reviewed. Case discussed with the staff. Issues related to illness and treatment were discussed with the patient. Reported compliant with treatment with no adverse affects. Tolerating treatment very well. Reported still hear voices but they're very less than before. Patient is more social, also attending groups on the unit. At the time of evaluation, patient was awake alert oriented 3, no delusions, no auditory visual hallucinations, no suicidal ideations or homicidal ideations. Medical Problems: Sleep apnea Obesity Diagnostic Results: Reviewed DSM 5 Symptoms Update: Improving with treatment Medication Change: No Medical Record Reviewed: Yes Mental Status Examination - Cognitive Function Orientation: Person, Place, Situation, Time Memory: Intact Attention: WNL Concentration: WNL Association: WNL Fund of Knowledge: [facility] Decription of patient's judgement and insights: Fair - Mood Mood: Depressed (Less than before) - Affect Affect: Constricted - Speech Speech: Soft - Formal Thought Process Formal Thought Process: Other - Suicidal Ideation Suicidal Ideation: No - Homicidal Ideation Homicidal Ideation: No Goal/Treatment Plan - Goal/Treatment Plan Need for Continued Stay: Remain at risks for inpatient hospitalization, Discharge may exacerbated symptoms, Severe functional impairment Progress Toward Problem(s) and Goals/Treatment Plan: Patient education Supportive therapy Continue treatment as before Patient will go to [facility] after discharge from the hospital. Estimated Date of D/C: 06/16/17 - Smoking Cessation Smoking Cessation Initiated: Yes
--- NOTE | 2017-06-13 15:40 | PCM.PYCHPN ---
Psychiatric Progress Note - Psychiatric Progress Note Patient seen today, length of contact: 15 minutes Patient Chief Complaint: I feel better. I'm sleeping better and voices are less than before. Problems Identified/Issues Discussed: Patient seen. Chart reviewed. Case discussed with the staff. Issues related to illness and treatment were discussed with the patient. Reported compliant with treatment with no adverse affects. Tolerating treatment very well. Sleeping better and feeling much better. Reported still hear voices but they're very less than before. Patient is more social, also attending groups on the unit. At the time of evaluation, patient was awake alert oriented 3, no delusions, no auditory visual hallucinations, no suicidal ideations or homicidal ideations. Medical Problems: Sleep apnea Obesity Diagnostic Results: Reviewed DSM 5 Symptoms Update: Improvement with treatment Medication Change: No Medical Record Reviewed: Yes Mental Status Examination - Cognitive Function Orientation: Person, Place, Situation, Time Memory: Intact Attention: WNL Concentration: WNL Association: WNL Fund of Knowledge: [facility] Decription of patient's judgement and insights: Fair - Mood Mood: Depressed - Affect Affect: Constricted, Depressed - Speech Speech: Soft - Formal Thought Process Formal Thought Process: Hallucinations - Suicidal Ideation Suicidal Ideation: No - Homicidal Ideation Homicidal Ideation: No Goal/Treatment Plan - Goal/Treatment Plan Need for Continued Stay: Remain at risks for inpatient hospitalization, Discharge may exacerbated symptoms, Severe functional impairment Progress Toward Problem(s) and Goals/Treatment Plan: Patient education Supportive therapy Continue treatment as before Patient will go to [facility] after discharge from the hospital. Estimated Date of D/C: 06/16/17 - Smoking Cessation Smoking Cessation Initiated: Yes
--- NOTE | 2017-06-14 22:01 | PCM.PYCHPN ---
Psychiatric Progress Note - Psychiatric Progress Note Patient seen today, length of contact: 15 minutes Patient Chief Complaint: "A little better" Problems Identified/Issues Discussed: The pt is seen, chart reviewed, case discussed with staff. Support given, CBT used briefly No new symptoms reported, improving slowly and needs more time No SEs from medications, risks discussed. After care discussed Will increase geodon as planned Medication Change: Yes (increase geodon) Medical Record Reviewed: Yes Mental Status Examination - Cognitive Function Orientation: Person, Place, Situation, Time Memory: Intact Attention: WNL Concentration: WNL Association: WNL Fund of Knowledge: WNL - Mood Mood: Depressed - Affect Affect: Constricted, Depressed - Speech Speech: Soft - Formal Thought Process Formal Thought Process: Hallucinations - Suicidal Ideation Suicidal Ideation: No - Homicidal Ideation Homicidal Ideation: No Goal/Treatment Plan - Goal/Treatment Plan Need for Continued Stay: Remain at risks for inpatient hospitalization, Discharge may exacerbated symptoms, Severe functional impairment Progress Toward Problem(s) and Goals/Treatment Plan: Needs more time as he is still odd, isolated, internally preoccupied Support and psychoed Attend groups and activities Continue meds family contact Estimated Date of D/C: 06/18/17
--- NOTE | 2017-06-15 13:30 | PCM.PYCHPN ---
Psychiatric Progress Note - Psychiatric Progress Note Patient seen today, length of contact: 15 minutes Patient Chief Complaint: I'm feeling better and voices are less than before. Problems Identified/Issues Discussed: Patient seen. Chart reviewed. Case discussed with the staff. Issues related to illness and treatment were discussed with the patient. Reported compliant with treatment with no adverse affects. Tolerating treatment very well. Reported he is feeling much better. Reported still hear voices but they're very less than before. Needs more time for stabilization. Patient is more social, also attending groups on the unit. At the time of evaluation, patient was awake alert oriented 3, no delusions, no auditory visual hallucinations, no suicidal ideations or homicidal ideations. Medical Problems: Sleep apnea Obesity Diagnostic Results: Reviewed DSM 5 Symptoms Update: Improving with treatment Medication Change: No Medical Record Reviewed: Yes Mental Status Examination - Cognitive Function Orientation: Person, Place, Situation, Time Memory: Intact Attention: WNL Concentration: WNL Association: WNL Fund of Knowledge: WNL Decription of patient's judgement and insights: Fair - Mood Mood: Depressed (Much less than before) - Affect Affect: Constricted, Depressed - Speech Speech: Soft - Formal Thought Process Formal Thought Process: Hallucinations (Less) - Suicidal Ideation Suicidal Ideation: No - Homicidal Ideation Homicidal Ideation: No Goal/Treatment Plan - Goal/Treatment Plan Need for Continued Stay: Remain at risks for inpatient hospitalization, Discharge may exacerbated symptoms, Severe functional impairment Progress Toward Problem(s) and Goals/Treatment Plan: Patient education Supportive therapy Continue treatment as before Patient will go to [facility] after discharge from the hospital. Estimated Date of D/C: 06/18/17 - Smoking Cessation Smoking Cessation Initiated: Yes
--- NOTE | 2017-06-16 13:42 | PCM.PYCHPN ---
Psychiatric Progress Note - Psychiatric Progress Note Patient seen today, length of contact: 15 minutes Patient Chief Complaint: I'm feeling better and not hearing any voices. Problems Identified/Issues Discussed: Patient seen. Chart reviewed. Case discussed with the staff. Issues related to illness and treatment were discussed with the patient. Reported compliant with treatment with no adverse affects. Tolerating treatment very well. Reported he is feeling much better. Not hearing any voices. Needs more time for stabilization. Patient is more social, also attending groups on the unit. At the time of evaluation, patient was awake alert oriented 3, no delusions, no auditory visual hallucinations, no suicidal ideations or homicidal ideations. Medical Problems: Sleep apnea Obesity Diagnostic Results: Reviewed DSM 5 Symptoms Update: Improving with treatment Medication Change: No Medical Record Reviewed: Yes Mental Status Examination - Cognitive Function Orientation: Person, Place, Situation, Time Memory: Intact Attention: WNL Concentration: WNL Association: WN Fund of Knowledge: [facility] Decription of patient's judgement and insights: Fair - Mood Mood: Depressed (Much less than before) - Affect Affect: Other (Appropriate) - Speech Speech: Soft - Formal Thought Process Formal Thought Process: No Impairment - Suicidal Ideation Suicidal Ideation: No - Homicidal Ideation Homicidal Ideation: No Goal/Treatment Plan - Goal/Treatment Plan Need for Continued Stay: Remain at risks for inpatient hospitalization, Discharge may exacerbated symptoms, Severe functional impairment Progress Toward Problem(s) and Goals/Treatment Plan: Patient education Supportive therapy Continue treatment as before Patient will go to [facility] after discharge from the hospital. Estimated Date of D/C: 06/18/17 - Smoking Cessation Smoking Cessation Initiated: Yes
--- NOTE | 2017-06-17 13:27 | PCM.PYCHPN ---
Psychiatric Progress Note - Psychiatric Progress Note Patient seen today, length of contact: 15 minutes Patient Chief Complaint: I'm feeling much better and not hearing any voices. Problems Identified/Issues Discussed: Patient seen. Chart reviewed. Case discussed with the staff. Issues related to illness and treatment were discussed with the patient. Reported compliant with treatment with no adverse affects. Tolerating treatment very well. Reported he is feeling much better. Not hearing any voices. Needs more time for stabilization. Patient is more social, also attending groups on the unit. At the time of evaluation, patient was awake alert oriented 3, no delusions, no auditory visual hallucinations, no suicidal ideations or homicidal ideations. Medical Problems: Sleep apnea Obesity Diagnostic Results: Reviewed DSM 5 Symptoms Update: Improving with treatment Medication Change: No Medical Record Reviewed: Yes Mental Status Examination - Cognitive Function Orientation: Person, Place, Situation, Time Memory: Intact Attention: WNL Concentration: WNL Association: [facility] Fund of Knowledge: [facility] Decription of patient's judgement and insights: Fair - Mood Mood: Neutral - Affect Affect: Other (Appropriate) - Speech Speech: Soft - Formal Thought Process Formal Thought Process: No Impairment - Suicidal Ideation Suicidal Ideation: No - Homicidal Ideation Homicidal Ideation: No Goal/Treatment Plan - Goal/Treatment Plan Need for Continued Stay: Remain at risks for inpatient hospitalization, Discharge may exacerbated symptoms, Severe functional impairment Progress Toward Problem(s) and Goals/Treatment Plan: Patient education Supportive therapy Continue treatment as before Patient will go to [facility] after discharge from the hospital. Estimated Date of D/C: 06/18/17 - Smoking Cessation Smoking Cessation Initiated: Yes
--- NOTE | 2017-06-17 15:07 | PCM.PYCHDC ---
Mental Status Examination - Mental Status Examination Orientation: Person, Place, Situation, Time Memory: Intact Description of patient's judgement and insight: Fair Discharge Summary - Discharge Note Consultations:: List each consultation separately and include: 1. Reason for request. 2. Findings. 3. Follow-up Summary of Hospital Course include:: 1. Description of specific treatment plan utilized for patients during their course of treatmen. 2. Summarize the time- course for resolution of acute symptoms and/or regressed behaviors. 3. Describe issues identified and worked on during hospitalization. 4. Describe medication utilized. 5. Describe medical problems identified and treated. 6. Reassessment of suicide risk - Final Diagnosis (DSM 5) Condition upon Discharge: STABLE Disposition: HOME/ ROUTINE Follow-up Treatment Plan: Patient education Supportive therapy Continue treatment as before Patient will go to [facility] after discharge from the hospital.
[2017-06-18 07:57] VITALS: BP 126/78; PULSE 93; RESP 20; TEMP 98.1; O2SAT 99
--- NOTE | 2017-06-18 17:51 | PCM.PYCHDC ---
Mental Status Examination - Mental Status Examination Orientation: Person, Place, Situation, Time Memory: Intact Mood: Neutral Affect: Other (Appropriate) Speech: Appropriate Attention: WNL Concentration: WNL Association: WNL Fund of Knowledge: WNL Formal Thought Process: No Impairment Description of patient's judgement and insight: Fair Psychotic Thoughts and Behaviors: None Suicidal Ideation: No Current Homicidal Ideation?: No Discharge Summary - Discharge Note Reason for Hospitalization: Schizoaffective disorder bipolar type Laboratory Data: Reviewed Consultations:: List each consultation separately and include: 1. Reason for request. 2. Findings. 3. Follow-up Summary of Hospital Course include:: 1. Description of specific treatment plan utilized for patients during their course of treatmen. 2. Summarize the time- course for resolution of acute symptoms and/or regressed behaviors. 3. Describe issues identified and worked on during hospitalization. 4. Describe medication utilized. 5. Describe medical problems identified and treated. 6. Reassessment of suicide risk Summary of Hospital Course: Pt is a 41 year old, male, presenting to the ED for a crisis evaluation due to auditory hallucinations and suicidal ideation. Pt states that he has been off of his psychiatric meds because he is unable to pay for them. Pt reports that after discharge from [facility] last month, he was feeling better, but since he can't get his medication, his symptoms are back. Pt appeared somewhat disorganized, internally preoccupied, and depressed. Pt states that he has been hearing voices commanding him to kill himself. Pt states that he also believes people are following him and are out to get him. Pt states that it's not anyone in particular, but it's "everyone." Pt admits to experiencing suicidal thoughts with plan to cut his wrists. Pt reports one prior suicide attempt 2 years ago by cutting his wrist. Pt is disheveled, malodorous. Pt is depressed with flat affect. He reports feelings of hopelessness and helplessness. Pt denies homicidal ideation. Pt is calm and cooperative at this time. Pt. denies using heroin, cocaine, and marijuana. Pt. claims he drinks 1-2 cans of beer socially. He claims he smokes 1 pack of cigarettes daily, but increases to 2 packs when he hears the voices. Pt. 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 Past Psych Hx: [facility] 3 months ago, [facility] 4 months ago, [facility] in February 2016, multiple inpatient psych hospitalizations, f/u w/ unknown psychiatrist at [facility]; hx. of suicidal ideation w/ 2 attempts (1 and 3 yrs. ago) ; pt. reports to having hx. of schizophrenia and depression PMH: sleep apnea; obesity Family psych/med Hx: "I don't know" Legal Hx: hx. of arrests due to assaultive behavior but denies any legal charges in past Social Hx: single; no children; homeless; unemployed--on disability During his stay on the unit patient was started on anti-psychotic medications and other when necessary medications, group therapy, individual therapy, CBT. With the above treatment, patient started feeling better. Today patient was stable and ready for discharge. At the time of evaluation and discharge. Patient was awake alert oriented 3, had no delusions, no auditory or visual hallucinations, suicidal ideations or homicidal ideations. Patient was discharged in a stable condition. - Final Diagnosis (DSM 5) Condition upon Discharge: STABLE Disposition: REHAB FACILITY/REHAB UNIT Follow-up Treatment Plan: Patient will go to [facility] after discharge from the hospital. Prescriptions/Medication Reconciliation: Benztropine [Cogentin] 1 mg PO BID #60 tab risperiDONE [RisperDAL Tab] 2 mg PO BID #30 tab Sertraline [Zoloft] 200 mg PO DAILY #60 tab traZODone [Desyrel] 100 mg PO HS #30 tab Ziprasidone [Geodon Cap] 60 mg PO BID #60 cap - Smoking Cessation Smoking Cessation Medication prescribed: No - Antipsychotic Medications Pt discharged on 2 or more routine antipsychotic medications: Yes - Justification for 2 or more meds Failed 3 or more trials of Monotherapy: List medications: Patient was on these to an day psychotic medications before
== END 2017-06-18 10:56 | DRG 885 ==
LOC: C.ER 11:18 → C.5E 14:47
PROVIDERS: ADMIT Psychiatry & Neurology Psychiatry; ATTEND Psychiatry & Neurology Psychiatry
PROC: GZHZZZZ Group Psychotherapy (ICD-10-PCS; principal; 2017-06-03)
PROC: GZ58ZZZ Individual Psychotherapy, Cognitive-Behavioral (ICD-10-PCS; 2017-06-03)
PROC: GZ56ZZZ Individual Psychotherapy, Supportive (ICD-10-PCS; 2017-06-03)
DX: F25.0 Schizoaffective disorder, bipolar type (principal); R45.851 Suicidal ideations; F22 Delusional disorders; E66.9 Obesity, unspecified; F17.210 Nicotine dependence, cigarettes, uncomplicated; M94.0 Chondrocostal junction syndrome [Tietze]; G47.30 Sleep apnea, unspecified; F41.9 Anxiety disorder, unspecified; Z79.899 Other long term (current) drug therapy; Z91.5 Personal history of self-harm

== ENCOUNTER 2017-10-14 06:59 | Inpatient (IN) | payer MEDICARE, OTHER ==
[2017-10-14 07:08] VITALS: BMI 29.8
[2017-10-14 07:54] LABS: BASO # 0.1 K/uL (0.0-0.2); BASO % 0.7 % (0.0-2.0); EOS # 0.3 K/uL (0.0-0.7); EOS % 3.9 % (0.0-4.0); LYMPH # 1.5 K/uL (1.0-4.3); MEAN CELL VOLUME 79.5 fL (80.0-94.0); MEAN CORPUSCULAR HGB CONC 35.3 g/dL (33.0-37.0); MEAN PLATELET VOLUME 8.4 fL (7.2-11.7); MONO # 0.7 K/uL (0.0-0.8); MONO % 9.6 % (0.0-10.0); NEUT # 5.2 K/uL (1.8-7.0); NEUT % 66.8 % (50.0-75.0); RBC 5.01 Mil/uL (4.40-5.90); RED CELL DISTRIBUTION WIDTH 14.9 % (11.5-14.5); WHITE BLOOD COUNT 7.8 K/uL (4.8-10.8)
[2017-10-14 08:08] LABS: ALB/GLOB RATIO 1.2 (1.0-2.1); ALT/SGPT 33 U/L (21-72); AST/SGOT 30 U/L (17-59); BLOOD UREA NITROGEN 13 mg/dL (9-20); GFR AFRICAN-AMERICAN > 60; GFR NON-AFRICAN AMERICAN > 60
--- NOTE | 2017-10-14 08:28 | C.PDOC ---
History Of Present Illness 42 y/o male, pmh including hyperlipidemia, psychiatric history including schizoaffective ds-paranoid type , nkda, c/o feeling hearing voices plus has idea of harming other people.Pt admits, was recent admitted to [facility] floor 10/02/17 with same complaints and released with moderate improvement in sx. Pt has hx of medication non-compliance. Otherwise, pt denies any other active physical complaints. Time Seen by Provider: 10/14/17 07:14 Chief Complaint (Nursing): Psychiatric Evaluation History Per: Patient History/Exam Limitations: no limitations Onset/Duration Of Symptoms: Days Current Symptoms Are (Timing): Still Present Past Medical History Reviewed: Historical Data, Nursing Documentation, Vital Signs Vital Signs: Last Vital Signs Temp 99.4 F 10/14/17 07:08 Pulse 105 H 10/14/17 07:08 Resp 20 10/14/17 07:08 BP 155/90 H 10/14/17 07:08 Pulse Ox 97 10/14/17 10:32 - Medical History PMH: Anxiety, Depression, HTN, Paranoia, Schizophrenia, Sleep Apnea - [facility] DPT ADMINISTRATION (03/28/15) GROUP PSYCHOTHERAPY (06/03/17) INDIVID PSYCHOTHERAP NEC (07/27/14) INDIVIDUAL PSYCHOTHERAPY, COGNITIVE-BEHAVIORAL (06/03/17) INDIVIDUAL PSYCHOTHERAPY, SUPPORTIVE (06/03/17) MEDICATION MANAGEMENT (03/01/16) NON-INVASIVE MECHANICAL VENTILATION (11/26/14) OTHER GROUP THERAPY (07/27/14) PSYCHIA INTERV/EVAL NEC (08/19/14) PSYCHIAT DRUG THERAP NEC (03/28/15) Family History: States: No Known Family Hx - Social History Hx Tobacco Use: Yes Hx Alcohol Use: Yes Hx Substance Use: No - Immunization History Hx Tetanus Toxoid Vaccination: No Hx Influenza Vaccination: Yes Hx Pneumococcal Vaccination: Yes Review Of Systems Except As Marked, All Systems Reviewed And Found Negative. Constitutional: Negative for: Fever Cardiovascular: Negative for: Chest Pain Respiratory: Negative for: Shortness of Breath Neurological: Negative for: Weakness, Numbness Psych: Positive for: Suicidal ideation, Other ((+) hearing voices) Physical Exam - Physical Exam Appears: Well, Non-toxic, No Acute Distress Skin: Normal Color, Warm, Dry, No Rash Head: Normacephalic Eye(s): bilateral: PERRL Ear(s): Bilateral: Normal Nose: No Flaring, No Discharge Oral Mucosa: Moist, No Drooling Throat: No Erythema, No Drooling Neck: Trachea Midline, Supple Cardiovascular: Rhythm Regular, No Murmur, No JVD Respiratory: No Decreased Breath Sounds, No Accessory Muscle Use, No Stridor, No Wheezing Gastrointestinal/Abdominal: Soft, No Tenderness, No Distention, No Guarding Back: No CVA Tenderness Extremity: Normal ROM, No Pedal Edema, No Deformity, No Swelling Neurological/Psych: Oriented x3, Normal Speech, Normal Motor, Normal Sensation, Normal Reflexes ED Course And Treatment - Laboratory Results Result Diagrams: 10/14/17 07:42 10/14/17 07:42 Lab Interpretation: Normal O2 Sat by Pulse Oximetry: 97 (RA) Pulse Ox Interpretation: Normal Progress Note: ON EVALUATION 1:1 OBS FOR SUICIDAL IDEATION. DIAGNOSTICS REVIEW AND APPEARS AT BASELINE. PT IS MEDICALLY CLEARED FOR PES EVALUATION. After pateint was seen by PES, case discussed with and admission to psych floor with Dx: Schizophrenia arranged. Disposition - Disposition Disposition: HOSPITALIZED Disposition Time: 10:00 Condition: STABLE Forms: [facility] (Kinyarwanda) - Clinical Impression Clinical Impression: Schizophrenia - PA / JACKSPOOLER / Resident Statement MD/DO has reviewed & agrees with the documentation as recorded. - Scribe Statement The provider has reviewed the documentation as recorded by the Scribe Monica Bassett All medical record entries made by the Scribe were at my direction and personally dictated by me. I have reviewed the chart and agree that the record accurately reflects my personal performance of the history, physical exam, medical decision making, and the department course for this patient. I have also personally directed, reviewed, and agree with the discharge instructions and disposition.
[2017-10-14 09:03] LABS: SQUAMOUS EPITHIAL < 1 /hpf (0-5); URINE BACTERIA RARE (<OCC); URINE BILIRUBIN NEGATIVE (NEGATIVE); URINE BLOOD NEGATIVE (NEGATIVE); URINE CLARITY Clear (Clear); URINE COLOR Yellow (YELLOW); URINE GLUCOSE (UA) NORMAL (Normal); URINE LEUKOCYTE ESTERASE NEG Leu/uL (Negative); URINE NITRATE NEGATIVE (NEGATIVE); URINE PROTEIN NEGATIVE (NEGATIVE)
[2017-10-14 09:33] LABS: BARBITURATES, UR NEGATIVE (NEGATIVE); BENZODIAZEPINES, UR NEGATIVE (NEGATIVE); OPIATES, UR NEGATIVE (NEGATIVE); PHENCYCLIDINE, UR NEGATIVE (NEGATIVE)
[2017-10-14 10:54] VITALS: O2SAT 95
--- NOTE | 2017-10-14 12:03 | PCM.BM ---
<Adriana Warner - Last Filed: 10/14/17 12:01> Treatment Plan Problems - Problems identified on initial assessmt Depression Date Initiated: 10/14/17 Time Initiated: 12:01 Assessment reference: NA Status: Active Auditory Hallucinations Date Initiated: 10/14/17 Time Initiated: 12:01 Assessment reference: NA Status: Active Suicidal Ideation Date Initiated: 10/14/17 Time Initiated: 12:03 Assessment reference: NA Status: Active Treatment assets and liabiliti Patient Assests: cooperative, educated, self-reliant, ADL independent, physically healthy, negotiates basic needs, good past tx response, cognitively intact Patient Liabilities: live alone, financial problems, poor support system, substance abuse (Hs of alcohol) - Milieu Protocol Maintain good personal hygiene: daily Encourage regular showers, daily Remind patient to perform daily oral care, daily Assist patient to perform ADL's (Self) , other Assist patient to perform ADL's Maintain personal safety: every shift Educate patient to report safety concerns to staff, every shift Monitor environment for contraband/sharps Medication safety: Monitor for expected outcome, potential side effects: every shift, Assess barriers to learning: every shift, Assess readiness for medication education: every shift <Erendira Pulido - Last Filed: 10/15/17 11:03> Family Contact Family involvement: Famliy/SO not involved - Goals for Treatment Patient goals for treatment: "I need new medication." Discharge/Continuing Care - Education Needs Education Needs: Patient Medication, Patient Coping Skills, Patient Community resources - Discharge Discharge Criteria: Tolerates medication w/o severe side effects, Free of Suicidal thoughts, Reduction of target symptoms Discharge to:: [facility] - Treatment Team Participation Discussed with Family/SO: No Was Patient/Family/SO present at Treatment Team Meeting: Yes <Michelle Carrillo - Last Filed: 10/15/17 11:05> - Diagnosis (1) Schizo affective schizophrenia Status: Acute Interventions: 10/15/17 11:05 * Assess/adjust medications daily and /or as needed * See patient on an individual basis 7x/week to assess status of hallucinations * Discuss risks, benefits, side effects and alternatives of medications *
--- NOTE | 2017-10-14 21:56 | PCM.PSYCH ---
Initial Psychiatric Evaluation - Initial Psychiatric Evaluation Type of Admission: Voluntary Legal Status: Capacity Chief Complaint (in patient's own words): "I was hearing voices" History of Present Illness and Precipitating Events: He is seen, chart reviewed and case discussed He is well-known from numerous previous admissions. He hospital bounces between [facility] and [facility] - just d/c'ed 2-3 days ago from [facility] Single, no child, homeless (stays with sister on and off) and unemployed, on disability,42 y/o LM Hearing voices telling him "bad things." Also paranoid, depressed, anxious, "scared." He is on risperdal 3 mg BID w cogentin but takes on and off He denies drug use but smokes 1 ppd cigarettes and drinks various amounts of alcohol Past Psych Hx: [facility] [place] and [facility]; multiple inpatient psych hospitalizations, f/u w/ unknown psychiatrist at [facility]; hx. of suicidal ideation w/ 2 attempts (1 and 3 yrs. ago); pt. reports to having hx. of schizophrenia and depression PMH: sleep apnea; obesity Family psych/med Hx: "I don't know" Current Medications: Active Medications Generic Name Dose Route Start Last Admin Trade Name Freq PRN Reason Stop Dose Admin Benztropine Mesylate 1 mg 10/14/17 22:00 10/14/17 21:22 Cogentin PO 1 mg HS JOHNY Administration Diphenhydramine HCl 50 mg 10/14/17 22:00 10/14/17 21:22 Benadryl PO 50 mg HS JOHNY Administration Haloperidol 5 mg 10/14/17 15:03 Haldol PO Q1H PRN agitation max 4x/24h Hydroxyzine HCl 50 mg 10/14/17 15:03 Atarax PO Q6H PRN Anxiety Risperidone 2 mg 10/14/17 22:00 10/14/17 21:22 Risperdal Tab PO 2 mg HS JOHNY Administration Sertraline HCl 100 mg 10/15/17 10:00 Zoloft PO DAILY JOHNY Past Psychiatric History - Past Psychiatric History Previous Treatment History: Inpatient Pertinent Medical Hx (Current Medical&Sleep Prob, Allergies): Allergies Allergy/AdvReac Type Severity Reaction Status Date / Time No Known Allergies Allergy Verified 10/14/17 07:06 RX: Benztropine [Cogentin] 1 mg PO TID #45 tab 10/11/17 RX: DiphenhydrAMINE [Benadryl] 50 mg PO HS #14 cap 10/11/17 RX: Sertraline [Zoloft] 100 mg PO DAILY #14 tab 10/11/17 RX: risperiDONE [RisperDAL Tab] 3 mg PO AMHS #30 tab 10/11/17 RX: traZODone [Desyrel] 100 mg PO DAILY 10/14/17 Review of Systems - Neurological Neurological: Tremor - Psychiatric Psychiatric: Abnormal Sleep Pattern, Anhedonia, Auditory Hallucinations, Change in Appetite, Depression, Difficulty Concentrating, Hallucinations, Irritability. absent: Homicidal Ideation, Suicidal Ideation Mental Status Examination - Personal Presentation Personal Presentation: Looks older than stated age - Affect Affect: Flat - Motor Activity Motor Activity: Calm - Reliability in Providing Information Reliability in Providing Information: Fair - Speech Speech: Disorganized - Mood Mood: Depressed, Anxious - Formal Thought Process Formal Thought Process: Hallucinations, Paranoia - Cognitive Functions Orientation: Person, Place, Situation, Time Sensorium: Alert Attention/Concentration: Easily distracted Abstract Thinking: [place] Estimate of Intelligence: Below average Judgement: Imparied, as evidence by: Poor judgement Memory: Recent intact, as evidence by: Ability to recall events of the day, Remote impaired as evidenced by: Inability to recall sig life events - Risk Risk: Diminished functioning - Strength & Assets Inventory Strength & Assets Inventory: Cooperative - Limitations Limitations: Living alone DSM 5 DX - DSM 5 DSM 5 Diagnosis: Schizophrenia - chronic, in acute exacerbation Alcohol use d/o Tobacco use d/o - Recommended/Plan of Treatment Treatment Recommendations and Plan of Treatment: Risperdal and cogentin resumed but lower doses as it is not clear how much he takes As needed medications Gabapentin for augmentation All risks, benefits and alternatives of medications, including no medications, discussed and the patient understood and agreed. Attend groups and activities Supportive therapy and psychoeducation [place] for abstinence CBT for relapse prevention Encourage MAT Refer to rehab or IOP Attend self-help groups as well 34 min Projected ELOS: 4-5 days Prognosis: Poor - chroic illness, poor support, low insight/motivation
--- NOTE | 2017-10-15 10:10 | PCM.PYCHPN ---
Psychiatric Progress Note - Psychiatric Progress Note Patient seen today, length of contact: 16 min Patient Chief Complaint: I was hearing voices Problems Identified/Issues Discussed: Patient seen and evaluated, chart reviewed and discussed with the nurse. Patient remained disorganized and internally preoccupied. He still reports of hearing voices and still appears paranoid and delusional. He reports depressed mood and feelings of hopelessness and helplessness. Patient remained isolated, confined and withdrawn. Patient is compliant with medications and denies any side effects. Symptoms are improving but need more time to stabilize. Support and psychoeducation given. Medication Change: Yes Medical Record Reviewed: Yes Mental Status Examination - Cognitive Function Orientation: Person, Place, Situation, Time Memory: Intact Attention: WNL Concentration: Poor Association: Loose Fund of Knowledge: Poor - Mood Mood: Depressed, Anxious - Affect Affect: Flat - Speech Speech: Soft - Formal Thought Process Formal Thought Process: Hallucinations, Paranoia - Suicidal Ideation Suicidal Ideation: No - Homicidal Ideation Homicidal Ideation: No Goal/Treatment Plan - Goal/Treatment Plan Need for Continued Stay: Severe depression anxiety, Severe functional impairment Progress Toward Problem(s) and Goals/Treatment Plan: Schizophrenia - chronic, in acute exacerbation Alcohol use d/o Tobacco use d/o Risperdal and cogentin resumed but lower doses as it is not clear how much he takes As needed medications Gabapentin for augmentation All risks, benefits and alternatives of medications, including no medications, discussed and the patient understood and agreed. Attend groups and activities Supportive therapy and psychoeducation [place] for abstinence CBT for relapse prevention Encourage MAT Refer to rehab or IOP Attend self-help groups as well - Smoking Cessation Smoking Cessation Initiated: No
--- NOTE | 2017-10-16 19:06 | PCM.PYCHPN ---
Psychiatric Progress Note - Psychiatric Progress Note Patient seen today, length of contact: 15 minutes Patient Chief Complaint: Patient still hear voices telling me that they will kill you. Problems Identified/Issues Discussed: Patient seen, chart reviewed, case discussed with the staff. Issues related to illness and treatment were discussed with the patient and staff. Reported compliant with treatment with no adverse affects. Patient reported still hearing voices. Patient is still isolative, confined to his room and withdrawn. Aftercare discussed with the patient. Encouraged patient to attend groups. At the time of evaluation, patient was awake alert oriented 3. Denied any delusions, no suicidal ideation or homicidal ideations at the time of evaluation. Still reported hearing voices telling him that they will kill himself. Medical Problems: Sleep apnea Obesity Diagnostic Results: Reviewed DSM 5 Symptoms Update: Patient reported no improvement Medication Change: No Medical Record Reviewed: Yes Mental Status Examination - Cognitive Function Orientation: Person, Place, Situation, Time Memory: Intact Attention: WNL Concentration: WNL Association: Loose Fund of Knowledge: Poor Decription of patient's judgement and insights: Poor - Mood Mood: Depressed - Affect Affect: Flat - Speech Speech: Soft - Formal Thought Process Formal Thought Process: Hallucinations, Paranoia - Suicidal Ideation Suicidal Ideation: No - Homicidal Ideation Homicidal Ideation: No Goal/Treatment Plan - Goal/Treatment Plan Need for Continued Stay: Remain at risks for inpatient hospitalization, Discharge may exacerbated symptoms, Severe functional impairment Progress Toward Problem(s) and Goals/Treatment Plan: Patient education Supportive therapy Continue treatment as before Patient will go to [facility] program after discharge from the hospital. Estimated Date of D/C: 10/21/17 - Smoking Cessation Smoking Cessation Initiated: No
--- NOTE | 2017-10-17 13:41 | PCM.PYCHPN ---
Psychiatric Progress Note - Psychiatric Progress Note Patient seen today, length of contact: 15 minutes Patient Chief Complaint: I still hear voices. Problems Identified/Issues Discussed: Patient seen, chart reviewed, case discussed with the staff. Issues related to illness and treatment were discussed with the patient and staff. Reported compliant with treatment with no adverse affects. Patient reported still hearing voices. Patient is still isolative, confined to his room and withdrawn. Aftercare discussed with the patient. Encouraged patient to attend groups and other activities on the unit. At the time of evaluation, patient was awake alert oriented 3. Denied any delusions, no suicidal ideation or homicidal ideations at the time of evaluation. Still reported hearing voices telling him that they will kill himself. Medical Problems: Sleep apnea Obesity Diagnostic Results: Reviewed DSM 5 Symptoms Update: Improving with treatment Medication Change: No Medical Record Reviewed: Yes Mental Status Examination - Cognitive Function Orientation: Person, Place, Situation, Time Memory: Intact Attention: WNL Concentration: WNL Association: WNL Fund of Knowledge: WN Decription of patient's judgement and insights: Poor - Mood Mood: Depressed - Affect Affect: Flat - Speech Speech: Soft - Formal Thought Process Formal Thought Process: Hallucinations, Paranoia - Suicidal Ideation Suicidal Ideation: No - Homicidal Ideation Homicidal Ideation: No Goal/Treatment Plan - Goal/Treatment Plan Need for Continued Stay: Remain at risks for inpatient hospitalization, Discharge may exacerbated symptoms, Severe functional impairment Progress Toward Problem(s) and Goals/Treatment Plan: Patient education Supportive therapy Continue treatment as before. Patient may get benefit from acting injection. Patient will go to [facility] program after discharge from the hospital. Estimated Date of D/C: 10/21/17 - Smoking Cessation Smoking Cessation Initiated: No
--- NOTE | 2017-10-18 12:34 | PCM.PYCHPN ---
Psychiatric Progress Note - Psychiatric Progress Note Patient seen today, length of contact: 15 minutes Patient Chief Complaint: hearing voices Problems Identified/Issues Discussed: Patient seen and examined at bedside. Chart reviewed and discussed with nurse and staff. Patient reports he continues to hear the voices, but not as strongly as before. He continues to feel depressed but denied any delusions, no suicidal or homicidal ideation. As per nursing, patient remained isolated, confined and withdrawn. Patient is compliant with medications and denies any side effects. Symptoms are improving but will need more time to stabilize. Support and psychoeducation given. Medication Change: No Medical Record Reviewed: Yes Mental Status Examination - Cognitive Function Orientation: Person, Place, Situation, Time Memory: Intact Attention: WNL Concentration: WNL Association: WNL Fund of Knowledge: WNL - Mood Mood: Depressed - Affect Affect: Flat - Speech Speech: Soft - Formal Thought Process Formal Thought Process: Hallucinations, Paranoia - Suicidal Ideation Suicidal Ideation: No - Homicidal Ideation Homicidal Ideation: No Goal/Treatment Plan - Goal/Treatment Plan Need for Continued Stay: Remain at risks for inpatient hospitalization, Discharge may exacerbated symptoms, Severe functional impairment Progress Toward Problem(s) and Goals/Treatment Plan: Schizophrenia - chronic, in acute exacerbation -Cogentin 1mg by mouth twice daily -Risperidone 2mg by mouth twice daily -Zoloft 100mg by mouth daily -Haldol and Atarax, as needed -All risks, benefits and alternatives of medications, including no medications, discussed and the patient understood and agreed. -Attend groups and activities -Supportive therapy and psychoeducation -FL for abstinence -CBT for relapse prevention -Encourage MAT -Attend self-help groups as well -Patient will go to [facility] program after discharge from the hospital. Hx of Alcohol Abuse Disorder Hx of Tobacco Use Disorder Hx Obesity Hx Sleep Apnea Hx HLD DW Kacy Perez DO, PGY-1 Estimated Date of D/C: 10/21/17
[2017-10-19 06:37] VITALS: RESP 18
--- NOTE | 2017-10-19 13:21 | PCM.PYCHPN ---
Psychiatric Progress Note - Psychiatric Progress Note Patient seen today, length of contact: 15 minutes Patient Chief Complaint: hearing voices Problems Identified/Issues Discussed: Patient seen and examined at bedside. Chart reviewed and discussed with nurse and staff. Patient reports he no longer hears voices, he states he feels good. He continues to feel depressed but denied any delusions, no suicidal or homicidal ideation. As per nursing, patient remained isolated, confined and withdrawn. Patient reports he participates in group, but continues to be isolated. Patient is compliant with medications and denies any side effects. Symptoms are improving but will need more time to stabilize. Support and psychoeducation given. Medication Change: No Medical Record Reviewed: Yes Mental Status Examination - Cognitive Function Orientation: Person, Place, Situation, Time Memory: Intact Attention: WNL Concentration: WNL Association: WNL Fund of Knowledge: WNL - Mood Mood: Depressed - Affect Affect: Flat - Speech Speech: Soft - Formal Thought Process Formal Thought Process: Hallucinations, Paranoia - Suicidal Ideation Suicidal Ideation: No - Homicidal Ideation Homicidal Ideation: No Goal/Treatment Plan - Goal/Treatment Plan Need for Continued Stay: Remain at risks for inpatient hospitalization, Discharge may exacerbated symptoms, Severe functional impairment Progress Toward Problem(s) and Goals/Treatment Plan: Schizophrenia - chronic, in acute exacerbation -Cogentin 1mg by mouth twice daily -Risperidone 2mg by mouth twice daily -Zoloft 100mg by mouth daily -Geodon 40mg by mouth twice a day started today -Haldol and Atarax, as needed -All risks, benefits and alternatives of medications, including no medications, discussed and the patient understood and agreed. -Attend groups and activities -Supportive therapy and psychoeducation -[place] for abstinence -CBT for relapse prevention -Encourage MAT -Attend self-help groups as well -Patient will go to [facility] program after discharge from the hospital. Hx of Alcohol Abuse Disorder Hx of Tobacco Use Disorder Hx Obesity Hx Sleep Apnea Hx HLD DW Kacy Perez DO, PGY-1 Estimated Date of D/C: 10/21/17
--- NOTE | 2017-10-20 10:56 | PCM.PYCHPN ---
Psychiatric Progress Note - Psychiatric Progress Note Patient seen today, length of contact: 15 minutes Patient Chief Complaint: I was hearing voices Problems Identified/Issues Discussed: Patient seen and evaluated, chart reviewed and discussed with the nurse. Patient remained disorganized and internally preoccupied. He still reports of hearing voices and still appears paranoid and delusional. He reports depressed mood and feelings of hopelessness and helplessness. Patient remained isolated, confined and withdrawn. Patient is compliant with medications and denies any side effects. Symptoms are improving but need more time to stabilize. Support and psychoeducation given. Medication Change: No Medical Record Reviewed: Yes Mental Status Examination - Cognitive Function Orientation: Person, Place, Situation, Time Memory: Intact Attention: WNL Concentration: WNL Association: WNL Fund of Knowledge: WNL - Mood Mood: Depressed - Affect Affect: Flat - Speech Speech: Soft - Formal Thought Process Formal Thought Process: Hallucinations, Paranoia - Suicidal Ideation Suicidal Ideation: No - Homicidal Ideation Homicidal Ideation: No Goal/Treatment Plan - Goal/Treatment Plan Need for Continued Stay: Remain at risks for inpatient hospitalization, Discharge may exacerbated symptoms, Severe functional impairment Progress Toward Problem(s) and Goals/Treatment Plan: Schizophrenia - chronic, in acute exacerbation Alcohol use d/o Tobacco use d/o Risperdal and cogentin resumed but lower doses as it is not clear how much he takes As needed medications Gabapentin for augmentation All risks, benefits and alternatives of medications, including no medications, discussed and the patient understood and agreed. Attend groups and activities Supportive therapy and psychoeducation [place] for abstinence CBT for relapse prevention Encourage MAT Refer to rehab or IOP Attend self-help groups as well Estimated Date of D/C: 10/21/17
[2017-10-22 06:43] VITALS: BP 134/80; PULSE 80; TEMP 98
--- NOTE | 2017-10-22 09:53 | PCM.PYCHDC ---
Mental Status Examination - Mental Status Examination Orientation: Person, Place, Situation, Time Memory: Intact Mood: Neutral Affect: Constricted Speech: Soft Attention: WNL Concentration: WNL Association: WNL Fund of Knowledge: WNL Formal Thought Process: No Impairment Description of patient's judgement and insight: good, fair Psychotic Thoughts and Behaviors: Denies any AVH Suicidal Ideation: No Current Homicidal Ideation?: No Discharge Summary - Discharge Note Reason for Hospitalization: Pe is seen, chart reviewed and case discussed. He is well-known from numerous previous admissions. He hospital bounces between [facility] and [facility] d/c'ed 2-3 days ago from [facility] 42 y/o LM Single, no child, homeless (stays with sister on and off) and unemployed, on disability, Hearing voices telling him "bad things." Also paranoid, depressed, anxious, "scared." He is on risperdal 3 mg BID w cogentin but takes on and off. He denies drug use but smokes 1 ppd cigarettes and drinks various amounts of alcohol. Past Psych Hx: [facility] and [facility]; multiple inpatient psych hospitalizations, f/u w/ unknown psychiatrist at [facility]; hx. of suicidal ideation w/ 2 attempts (1 and 3 yrs. ago); pt. reports to having hx. of schizophrenia and depression PMH: sleep apnea; obesity Family psych/med Hx: "I don't know" Consultations:: List each consultation separately and include: 1. Reason for request. 2. Findings. 3. Follow-up Summary of Hospital Course include:: 1. Description of specific treatment plan utilized for patients during their course of treatmen. 2. Summarize the time- course for resolution of acute symptoms and/or regressed behaviors. 3. Describe issues identified and worked on during hospitalization. 4. Describe medication utilized. 5. Describe medical problems identified and treated. 6. Reassessment of suicide risk Summary of Hospital Course: During the course of his stay, patient (pt) started progressively improving and he no longer remained irritable, depressed, suicidal and paranoid. His mood and paranoia were improved and he started attending groups and meetings and started socializing. He started taking care of his hygiene and ADLs, and he no longer remained disheveled and malodorous. Patient denied any feelings of hopelessness , helplessness, and worthlessness, denied any problem with the sleep or appetite , denied suicidal ideation or homicidal ideation. Pt denied any auditory or visual hallucinations. Some changes were made in his current medications and patient was discharged on following medications. He tolerated these medications very well and denied any side effects. He was discharged back to [facility]. - Diagnosis (1) Schizo affective schizophrenia Status: Acute - Final Diagnosis (DSM 5) Condition upon Discharge: STABLE DSM 5: Schizophrenia - chronic, in acute exacerbation Alcohol use d/o Tobacco use d/o Disposition: HOME/ ROUTINE Follow-up Treatment Plan: Education: Pt was educated and counseled about the risks and benefits of taking and not taking medications. Pt was educated and counseled about the risks of drinking and abusing drugs. Pt was educated and counseled to go to the ER or call 911 if pt develop suicidal ideation or homicidal ideation, worsening of symptoms or severe side effects of the meds. Prescriptions/Medication Reconciliation: Benztropine [Cogentin] 1 mg PO BID #60 tab risperiDONE [RisperDAL Tab] 2 mg PO BID #60 tab Sertraline [Zoloft] 100 mg PO DAILY #30 tab Ziprasidone [Geodon] 40 mg PO BID #60 cap - Smoking Cessation Smoking Cessation Medication prescribed: No - Antipsychotic Medications Pt discharged on 2 or more routine antipsychotic medications: No
== END 2017-10-22 11:09 | disposition home or self-care (01) | DRG 885 ==
LOC: C.ER 06:59 → C.5E 10:02
PROVIDERS: ADMIT Psychiatry & Neurology Psychiatry; ATTEND Psychiatry & Neurology Psychiatry
PROC: GZ3ZZZZ Medication Management (ICD-10-PCS; principal; 2017-10-14)
PROC: GZHZZZZ Group Psychotherapy (ICD-10-PCS; 2017-10-14)
PROC: GZ56ZZZ Individual Psychotherapy, Supportive (ICD-10-PCS; 2017-10-14)
DX: F25.9 Schizoaffective disorder, unspecified (principal); F32.9 Major depressive disorder, single episode, unspecified; F10.10 Alcohol abuse, uncomplicated; F17.210 Nicotine dependence, cigarettes, uncomplicated; I10 Essential (primary) hypertension; E78.5 Hyperlipidemia, unspecified; G47.30 Sleep apnea, unspecified; E66.9 Obesity, unspecified; Z91.5 Personal history of self-harm; Z59.0 Homelessness; Z79.899 Other long term (current) drug therapy; Z91.14 Patient's other noncompliance with medication regimen

== ENCOUNTER 2018-01-18 09:28 | Inpatient (IN) | payer MEDICARE ==
[2018-01-18 09:46] VITALS: BMI 44.9
[2018-01-18 10:30] LABS: BASO % 0.7 % (0.0-2.0); EOS # 0.2 K/uL (0.0-0.7); EOS % 4.3 % (0.0-4.0); HEMOGLOBIN 13.2 g/dL (12.0-18.0); LYMPH # 1.1 K/uL (1.0-4.3); MEAN CELL VOLUME 80.9 fL (80.0-94.0); MEAN CORPUSCULAR HGB CONC 34.6 g/dL (33.0-37.0); MEAN PLATELET VOLUME 7.8 fL (7.2-11.7); MONO # 0.4 K/uL (0.0-0.8); MONO % 8.8 % (0.0-10.0); NEUT # 3.1 K/uL (1.8-7.0); NEUT % 63.2 % (50.0-75.0); NRBC % 0.1 % (0.0-2.0); RBC 4.73 Mil/uL (4.40-5.90); RED CELL DISTRIBUTION WIDTH 15.8 % (11.5-14.5)
[2018-01-18 10:41] LABS: URINE BILIRUBIN NEGATIVE (NEGATIVE); URINE BLOOD NEGATIVE (NEGATIVE); URINE CLARITY Clear (Clear); URINE COLOR Yellow (YELLOW); URINE GLUCOSE (UA) NORMAL (Normal); URINE LEUKOCYTE ESTERASE NEG Leu/uL (Negative); URINE PROTEIN NEGATIVE (NEGATIVE); URINE UROBILINOGEN NORMAL mg/dL (0.2-1.0)
[2018-01-18 10:48] LABS: ALB/GLOB RATIO 1.1 (1.0-2.1); ALBUMIN 3.7 g/dL (3.5-5.0); ALT/SGPT 20 U/L (21-72); AST/SGOT 38 U/L (17-59); BLOOD UREA NITROGEN 10 mg/dL (9-20); CALCIUM 8.9 mg/dl (8.6-10.4); GFR AFRICAN-AMERICAN > 60; GFR NON-AFRICAN AMERICAN > 60
--- NOTE | 2018-01-18 11:37 | C.PDOC ---
History Of Present Illness 42 y/o male, w/PMhx of schizophrenia, presents to the ER complaining of hearing voices. Patient states that, "the voices are telling me to end my life and " I don't feel like I belong in the world." Patient reports that he does not have a set plan. He notes that he is homeless. Patient denies using homicidal ideation and drug use. Time Seen by Provider: 01/18/18 09:59 Chief Complaint (Nursing): Psychiatric Evaluation History Per: Patient History/Exam Limitations: no limitations Onset/Duration Of Symptoms: Days Current Symptoms Are (Timing): Still Present Severity: Moderate Past Medical History Reviewed: Historical Data, Nursing Documentation, Vital Signs Vital Signs: Last Vital Signs Temp 98.9 F 01/18/18 13:16 Pulse 90 01/18/18 13:16 Resp 20 01/18/18 13:16 BP 142/88 01/18/18 13:16 Pulse Ox 96 01/18/18 13:16 - Medical History PMH: Anxiety, Depression, Paranoia, Schizophrenia, Sleep Apnea Denies: Diabetes, Hepatitis, HIV, HTN, Chronic Kidney Disease, Seizures, Sexually Transmitted Disease Surgical History: No Surg Hx - [facility] Procedures DPT ADMINISTRATION (03/28/15) GROUP PSYCHOTHERAPY (10/14/17) INDIVID PSYCHOTHERAP NEC (07/27/14) INDIVIDUAL PSYCHOTHERAPY, COGNITIVE-BEHAVIORAL (06/03/17) INDIVIDUAL PSYCHOTHERAPY, SUPPORTIVE (10/14/17) MEDICATION MANAGEMENT (10/14/17) NON-INVASIVE MECHANICAL VENTILATION (11/26/14) OTHER GROUP THERAPY (07/27/14) PSYCHIA INTERV/EVAL NEC (08/19/14) PSYCHIAT DRUG THERAP NEC (03/28/15) Family History: States: No Known Family Hx - Social History Hx Tobacco Use: Yes Hx Alcohol Use: Yes (Last used 10/13/17) Hx Substance Use: Yes - Immunization History Hx Tetanus Toxoid Vaccination: No Hx Influenza Vaccination: Yes Hx Pneumococcal Vaccination: Yes Review Of Systems Except As Marked, All Systems Reviewed And Found Negative. Constitutional: Negative for: Fever, Chills Psych: Positive for: Suicidal ideation Physical Exam - Physical Exam Appears: No Acute Distress, Other (obese male) Skin: Normal Color, Warm, Other (no signs of injury) Head: Atraumatic, Normacephalic Eye(s): bilateral: Normal Inspection Nose: Normal Oral Mucosa: Moist Neck: Supple Chest: Symmetrical Cardiovascular: Rhythm Regular Respiratory: Normal Breath Sounds, No Rales, No Rhonchi, No Wheezing Gastrointestinal/Abdominal: Normal Exam, Soft, No Tenderness Neurological/Psych: Oriented x3, Normal Speech ED Course And Treatment - Laboratory Results Result Diagrams: 01/18/18 10:24 01/18/18 10:36 O2 Sat by Pulse Oximetry: 97 (RA) Pulse Ox Interpretation: Normal Medical Decision Making Medical Decision Making: Plan: --Labs --UA --Crisis Evaluation Labs ordered and reviewed. In my clinical judgment patient is medically cleared and stable for psychiatric admission. construction ironworker contacted for evaluation. As per PES patient is to be admitted. Dr Carrillo accepts psych admission for Dx schizophrenia Disposition - Disposition Disposition: HOSPITALIZED Disposition Time: 12:40 Condition: STABLE - POA Present On Arrival: None - Clinical Impression Clinical Impression: Schizophrenia - PA / PROFESSOR OF FAMILY MEDICINE / Resident Statement MD/DO has reviewed & agrees with the documentation as recorded. - Scribe Statement The provider has reviewed the documentation as recorded by the Nicoleibfarhan Hooks Provider Attestation All medical record entries made by the Scribe were at my direction and personally dictated by me. I have reviewed the chart and agree that the record accurately reflects my personal performance of the history, physical exam, medical decision making, and the department course for this patient. I have also personally directed, reviewed, and agree with the discharge instructions and disposition. Decision To Admit - Pt Status Changed To: Hospital Disposition Of: Inpatient - Admit Certification Admit to Inpatient:: After my assessment, the patient will require hospitalization for at least two midnights. This is because of the severity of symptoms shown, intensity of services needed, and/or the medical risk in this patient being treated as an outpatient. - InPatient: Physician Admission Certification: I certify that this patient requires 2 or more midnights of care for the following reason:: Dr Carrillo accepted psych admission schizophrenia - . Bed Request Type: Psychiatry Admitting Physician: Michelle Carrillo Patient Diagnosis: Schizophrenia
[2018-01-18 12:13] LABS: BARBITURATES, UR NEGATIVE (NEGATIVE); BENZODIAZEPINES, UR NEGATIVE (NEGATIVE); OPIATES, UR NEGATIVE (NEGATIVE); PHENCYCLIDINE, UR NEGATIVE (NEGATIVE)
[2018-01-18 13:57] VITALS: O2SAT 97
--- NOTE | 2018-01-18 13:57 | PCM.BM ---
<Fiona Cedeno - Last Filed: 01/18/18 13:55> Treatment Plan Problems - Problems identified on initial assessmt Suicidal Ideation Date Initiated: 01/18/18 Time Initiated: 13:55 Assessment reference: NA Status: Monitor Auditory Hallucination Date Initiated: 01/18/18 Time Initiated: 13:56 Assessment reference: NA Status: Active Treatment assets and liabiliti Patient Assests: cooperative, educated, self-reliant, ADL independent, physically healthy, negotiates basic needs, good past tx response, cognitively intact Patient Liabilities: poor support system - Milieu Protocol Maintain good personal hygiene: every other day Encourage regular showers, every shift Remind patient to perform daily oral care, every shift Assist patient to perform ADL's Maintain personal safety: every shift Educate patient to report safety concerns to staff, every shift Monitor environment for contraband/sharps Medication safety: Monitor for expected outcome, potential side effects: every shift, Assess barriers to learning: every shift, Assess readiness for medication education: every shift <Michelle Carrillo - Last Filed: 01/19/18 11:28> - Diagnosis (1) Schizophrenia Status: Acute Interventions: 01/19/18 11:28 * Assess/adjust medications daily and /or as needed * See patient on an individual basis 7x/week to assess status of hallucinations * Discuss risks, benefits, side effects and alternatives of medications * <Virgie Webb - Last Filed: 01/19/18 12:53> Family Contact Family involvement: Patient does not wish Family/SO involvement Family contact: Patient declines to allow family contact at present - Goals for Treatment Patient goals for treatment: "I want to return to the [facility] program." Discharge/Continuing Care - Education Needs Education Needs: Patient Medication, Patient Coping Skills, Patient Community resources - Discharge Discharge Criteria: Free of Suicidal thoughts, Free of paranoid thoughts, Normal sleep pattern, Ability to care for self, No longer exhibiting s/s of withdrawal, Reduction of target symptoms Discharge to:: Home - Treatment Team Participation Discussed with Family/SO: No Was Patient/Family/SO present at Treatment Team Meeting: Yes
--- NOTE | 2018-01-19 11:28 | PCM.PSYCH ---
Initial Psychiatric Evaluation - Initial Psychiatric Evaluation Type of Admission: Voluntary Legal Status: Capacity Chief Complaint (in patient's own words): I started hearing voices telling me to hurt myself.' History of Present Illness and Precipitating Events: Pt is a 42 year old male presenting to [facility] self-referred for command auditory hallucinations and S/I with a plan to cut himself. Research Director is familiar with this patient. Patient has a long history of schizophrenia. He has h/o multiple inpatient psychiatric hospitalizations, with the last being at [address] in 09/2017. Pt appeared disorganized and internally preoccupied throughout the evaluation. Pt states that he has been "hearing voices," which are multiple unfamiliar male voices that "tell me they' re going to kill me." Pt states he has been experiencing auditory hallucinations for "a few weeks," but these are getting worse now. Pt admits to S/I, and holds out his right wrist where a small bandage is noted secondary to superficial laceration made with a "razor," as per pt. Pt admits to suicide attempts in the past, and again notes to his wrist, but unable to articulate further details. Pt is not currently connected to outpatient treatment, not on medications, and unable to state the names of the medications or the last time he took them. Pt states that his unstable housing contributes to his paranoia and "feeling like people are after me." Pt presents as unkempt, but not malodorous. Pt behavior is superficially cooperative, evasive, and suspicious. Pt mood presents as anxious with flat and guarded affect. PMH: Sleep apnea Current Medications: Active Medications Generic Name Dose Route Start Last Admin Trade Name Freq PRN Reason Stop Dose Admin Benztropine Mesylate 1 mg 01/18/18 18:00 01/19/18 10:06 Cogentin PO 1 mg BID JOHNY Administration Diphenhydramine HCl 50 mg 01/18/18 22:00 01/18/18 22:57 Benadryl PO Not Given HS JOHNY Hydroxyzine HCl 50 mg 01/18/18 17:21 Atarax PO Q6 PRN Agitation Pneumococcal Polyvalent Vaccine 0.5 ml 01/20/18 10:00 Pneumovax 23 Vaccine IM 01/20/18 10:01 .ONCE ONE Trazodone HCl 100 mg 01/18/18 22:00 01/18/18 22:57 Desyrel PO Not Given HS JOHNY Ziprasidone 20 mg 01/18/18 18:00 01/19/18 10:06 Geodon Cap PO 20 mg BID JOHNY Administration Past Psychiatric History - Past Psychiatric History Previous Treatment History: Inpatient Pertinent Medical Hx (Current Medical&Sleep Prob, Allergies): Allergies Allergy/AdvReac Type Severity Reaction Status Date / Time No Known Allergies Allergy Verified 01/18/18 10:02 Benztropine [Cogentin] 1 mg PO TID #45 tab 10/11/17 DiphenhydrAMINE [Benadryl] 50 mg PO HS #14 cap 10/11/17 risperiDONE [RisperDAL Tab] 3 mg PO AMHS #30 tab 10/11/17 traZODone [Desyrel] 100 mg PO DAILY 10/14/17 Benztropine [Cogentin] 1 mg PO BID #60 tab 10/22/17 Sertraline [Zoloft] 100 mg PO DAILY #30 tab 10/22/17 Ziprasidone [Geodon Cap] 40 mg PO BID #60 cap 10/22/17 risperiDONE [RisperDAL Tab] 2 mg PO BID #60 tab 10/22/17 Review of Systems - Review of Systems All systems: reviewed and no additional remarkable complaints except - Psychiatric Psychiatric: Anxiety, Irritability, Suicidal Ideation Mental Status Examination - Personal Presentation Personal Presentation: Looks stated age - Affect Affect: Constricted - Motor Activity Motor Activity: Calm - Reliability in Providing Information Reliability in Providing Information: Fair - Speech Speech: Disorganized - Mood Mood: Depressed, Anxious - Formal Thought Process Formal Thought Process: Hallucinations, Delusions, Paranoia, Loosening of associations - Hallucinations/Delusions Hallucinations: Visual, Auditory Delusions: Persecution - Obsessions/Compulsions Obsessions: No Compulsions: No - Cognitive Functions Orientation: Person, Place, Situation, Time Sensorium: Alert Attention/Concentration: Attentive Abstract Thinking: [place] Estimate of Intelligence: Below average Judgement: Imparied, as evidence by: Poor judgement, Imparied, as evidence by: Lack of insight into illness - Risk Risk: Suicidal, Diminished functioning - Limitations Limitations: Living alone DSM 5 DX - DSM 5 DSM 5 Diagnosis: Schizoaffective disorder depressed type - Recommended/Plan of Treatment Treatment Recommendations and Plan of Treatment: Schizoaffective disorder depressed type -CBT -Psychoeducation -Supportive therapy, group therapy, individual therapy -Zoloft 50 mg PO Daily -Geodon 20 mg PO BID -Trazodone 50 mg by mouth daily at bedtime - Smoking Cessation Smoking Cessation Initiated: No
[2018-01-20] MEDS ORDERED: Pneumococcal 23-Valent Vaccine IM ONE (10:00)
--- NOTE | 2018-01-21 01:27 | PCM.PYCHPN ---
Psychiatric Progress Note - Psychiatric Progress Note Patient seen today, length of contact: 15 min Patient Chief Complaint: I started hearing voices telling me to hurt myself.' Problems Identified/Issues Discussed: Patient seen and evaluated, chart reviewed and discussed with the nurse. Patient remained disorganized and internally preoccupied. He still reports of hearing voices. Patient still appears paranoid and delusional. He reports depressed mood and remained isolated, confined and withdrawn. Patient is compliant with medications and denies any side effects. Symptoms are improving but need more time to stabilize. Support and psychoeducation given. Medication Change: Yes Medical Record Reviewed: Yes Mental Status Examination - Cognitive Function Orientation: Person, Place, Situation, Time Memory: Intact Attention: Poor Concentration: Poor Association: Loose Fund of Knowledge: Poor - Mood Mood: Depressed, Anxious - Affect Affect: Constricted - Formal Thought Process Formal Thought Process: Hallucinations, Delusions, Paranoia, Loosening of associations - Suicidal Ideation Suicidal Ideation: No - Homicidal Ideation Homicidal Ideation: No Goal/Treatment Plan - Goal/Treatment Plan Need for Continued Stay: Severe depression anxiety, Severe functional impairment Progress Toward Problem(s) and Goals/Treatment Plan: Schizoaffective disorder depressed type -CBT -Psychoeducation -Supportive therapy, group therapy, individual therapy -Zoloft 50 mg PO Daily -Geodon 20 mg PO BID -Trazodone 50 mg by mouth daily at bedtime - Smoking Cessation Smoking Cessation Initiated: No
--- NOTE | 2018-01-21 10:05 | PCM.PYCHPN ---
Psychiatric Progress Note - Psychiatric Progress Note Patient seen today, length of contact: 15 min Patient Chief Complaint: I started hearing voices telling me to hurt myself.' Problems Identified/Issues Discussed: Patient seen and evaluated, chart reviewed and discussed with the nurse. Patient appears more organized and less internally preoccupied. Patient appears less paranoid and less delusional. He reports improvement in his depressed mood. Patient is compliant with medications and denies any side effects. Symptoms are improving but need more time to stabilize. Support and psychoeducation given. Medication Change: Yes (increase geodon) Medical Record Reviewed: Yes Mental Status Examination - Cognitive Function Orientation: Person, Place, Situation, Time Memory: Intact Attention: WNL Concentration: WNL Association: Loose Fund of Knowledge: WNL - Mood Mood: Anxious - Affect Affect: Constricted - Formal Thought Process Formal Thought Process: Loosening of associations - Suicidal Ideation Suicidal Ideation: No - Homicidal Ideation Homicidal Ideation: No Goal/Treatment Plan - Goal/Treatment Plan Need for Continued Stay: Severe depression anxiety, Severe functional impairment Progress Toward Problem(s) and Goals/Treatment Plan: Schizoaffective disorder depressed type -CBT -Psychoeducation -Supportive therapy, group therapy, individual therapy -Zoloft 100 mg PO Daily -Geodon 40 mg PO BID -Trazodone 50 mg by mouth daily at bedtime - Smoking Cessation Smoking Cessation Initiated: No
[2018-01-22 06:33] VITALS: BP 102/76; PULSE 96; RESP 18; TEMP 97.7
== END 2018-01-22 11:40 | disposition home or self-care (01) | DRG 885 ==
LOC: C.ER 09:28 → C.5E 12:46
PROVIDERS: ADMIT Psychiatry & Neurology Psychiatry; ATTEND Psychiatry & Neurology Psychiatry
DX: F25.1 Schizoaffective disorder, depressive type (principal); R45.851 Suicidal ideations; Z59.0 Homelessness; G47.30 Sleep apnea, unspecified; F41.9 Anxiety disorder, unspecified; Z91.5 Personal history of self-harm; W26.8XXA Contact with other sharp object(s), not elsewhere classified, initial encounter; S61.511A Laceration without foreign body of right wrist, initial encounter; F17.200 Nicotine dependence, unspecified, uncomplicated